=== PATIENT | female | born 1935 | race Caucasian/White ===

== ENCOUNTER 2018-04-30 19:53 | Inpatient (IN) ==
[2018-04-30] MEDS ORDERED: DOPamine 400 MG/250 ML Premix 400 MG/250 ML BAG IV.CONT ONE (19:59)
[2018-04-30] MEDS: Norepinephrine Inj 4 MG in Sodium Chlor 0.9% Inj 246 ML IV.SIG PRN (20:12)
[2018-04-30] MEDS ORDERED: DOPamine 800 MG/500 ML Premix 800 MG/500 ML PLAST..BAG IV.CONT PRN (20:54)
[2018-04-30] MEDS ORDERED: Pantoprazole Inj 40 MG Vial IV.PUSH ONE (20:54)
[2018-04-30] MEDS ORDERED: Hydrocortisone Sod Succinate 100 MG Vial IV.PUSH ONE (20:54)
--- NOTE | 2018-04-30 21:02 | XR ---
EXAM DATE: 04/30/2018 8:53 PM EST AGE/SEX: 82 years / Female INDICATIONS: Post intubation. CLINICAL DATA: This is the patient's initial encounter. Patient reports that signs and symptoms have been present for 1 day and indicates a pain score of Nonresponsive. MEDICAL/SURGICAL HISTORY: . Chronic obstructive pulmonary disease. Hypertension. None. COMPARISON: [facility], CHEST 1V SINGLE AP, 04/21/2018. . FINDINGS: ET tube in good position. Left lung is hyperinflated with left pneumothorax.. The right lung is under aerated. Coarse interstit ial changes are present. CONCLUSION: ETT in good position Moderate left pneumothorax loculated in the base because of supine film. Electronically signed by: Jason Noble MD Board Certified Radiologist 04/30/2018 9:01 PM EST
[2018-04-30 21:18] LABS: ABG Base Excess -14.4 mmol/L (-2-2); ABG PCO2 61 mmHg (38-42); ABG PO2 444 mmHg (61-120)
--- NOTE | 2018-04-30 21:27 | XR ---
EXAM DATE: 04/30/2018 9:23 PM EST AGE/SEX: 82 years / Female INDICATIONS: Post left side chest tube. CLINICAL DATA: This is the patient's subsequent encounter. Patient reports that signs and symptoms h ave been present for 1 day and indicates a pain score of Nonresponsive. MEDICAL/SURGICAL HISTORY: . Chronic obstructive pulmonary disease. Hypertension. None. [place] [facility] [place]. . FINDINGS: Large bore chest tube in good position on the left resolution of the pneumothorax. ET tube in good po sition. Coarse interstitial changes throughout both lungs. CONCLUSION: Left chest tube in good position with resolution of the left pneumothorax Electronically signed by: Jason Noble MD Board Certified Radiologist 04/30/2018 9:26 PM EST
[2018-04-30 21:50] LABS: Baso # (Auto) 0.1 th/mm3 (0.0-0.2); Baso % (Auto) 0.7 % (0.0-2.0); Eos % (Auto) 0.1 % (0.0-4.0); Hematocrit 22.4 % (35.0-46.0); Lymph # (Auto) 3.6 th/mm3 (1.0-4.8); Lymph % (Auto) 20.7 % (9.0-44.0); Mean Corpuscular Hemoglobin 29.3 pg (27.0-34.0); Mean Corpuscular Volume 98.5 fL (80.0-100.0); Mean Platelet Volume 8.7 fL (7.0-11.0); Mono # (Auto) 0.6 th/mm3 (0.0-0.9); Mono % (Auto) 3.2 % (0.0-8.0); Neut % (Auto) 75.3 % (16.0-70.0); Platelet Count 200 th/mm3 (150-450); Red Blood Count 2.28 mil/mm3 (4.00-5.30); Red Cell Distribution Width 17.1 % (11.6-17.2); White Blood Count 17.2 th/mm3 (4.0-11.0)
--- NOTE | 2018-04-30 21:51 | P.HPCC ---
History of Present Illness Primary Care Physician: Magnus Gil MD History of Present Illness: 82-year-old female presents from local nursing facility where she was found to be unresponsive by nursing staff. According to paramedics who provided a history patient has severe dementia is a recent 2-3-day resident of the nursing facility and was reportedly found by paramedics to be unresponsive pulseless without heart sounds and with apnea. ACLS protocol and resuscitative measures were initiated immediately with assisted ventilations and CPR as well as IV access administration of medications and intubation. According to paramedics in the field patient received 4 mg of epinephrine and 50 mEq of sodium bicarbonate. Patient also received 500 mL's of normal saline bolus. Patient was initially identified to be briefly and a bradycardic PEA then deteriorated to asystole and then was in a tachycardic PEA. Patient had return of spontaneous circulation upon arrival to the emergency department. At time of transfer from EMS stretcher to ED stretcher breath sounds were auscultated bilaterally and no borborygmi was identified prior to transfer to ED stretcher and upon transfer to ED structure patient continued to have bilateral breath sounds with no borborygmi. No difficulty with ambulation assisted ventilations. Patient did have faint pulse femoral he as well as palpable pulse with carotids and no blood pressure had been reported. Ongoing IV fluids were administered. Past medical history includes dementia and COPD per paramedics. The initial chest x-ray in the emergency department showed left pneumothorax for which the chest tube was placed by ED attending. The patient' s condition and poor prognosis was discussed with the family members by ED attending. It was found that the patient was supposed to be DNR at the intermediate due to end-stage dementia, however the paperwork was never finished. The patient's family expressed wishes to place a DNR order on the chart. Inpatient Certification: I certify that the inpatient services were ordered in accordance with Medicare regulations governing the order. This includes certification that hospital inpatient services are reasonable and necessary and in the case of services not specified as inpatient-only under 42 CFR 419.22(n), that they are appropriately provided as inpatient services in accordance to with the 2-midnight benchmark under 43 CFR 412.3(e) Review of Systems unobtainable due to endotracheal tube PMFSH - History History Provided By: Legal Editor / EMT - Medical History Medical History: Medical History (Last Reviewed 04/24/18 @ 13:28 by Katherine Jo) Alzheimer disease COPD (chronic obstructive pulmonary disease) History of hysterectomy Hyperlipidemia Hypertension Osteoarthritis - Family History Family History: Family History (Last Updated 04/15/18 @ 22:25 by Tabatha Singh MD) Other Diabetes mellitus - Tobacco History Second Hand Smoke Exposure: No Tobacco Use In Past 30 Days: (unknown) Smoking Status: Light tobacco smoker Tobacco Type: Cigarettes - Alcohol History How Often Do You Have a Drink Containing Alcohol: Never - Substance Use History Substance History: No History of Abuse - Travel History Recent Travel in the [place] Within the Last 8 Weeks: No Recent Travel Out of the Country Within the Last 8 Weeks: No - Immunization History Tetanus Immunization: Unsure Medications and Allergies Active Medications: Active Medications Norepinephrine Bitartrate 4 mg (/ Sodium Chloride) 250 mls @ 7.5 mls/hr IV.SIG TITRATE PRN; Protocol PRN Reason: Per Protocol Last Admin: 04/30/18 20:12 Dose: 20 mcg/min, 75 mls/hr Dopamine HCl/Dextrose (Dopamine 800 Mg/500 Ml Premix) 800 mg in 500 mls @ 6.921 mls/hr IV.CONT TITRATE PRN; Protocol PRN Reason: Per Protocol Sodium Chloride (Ns Flush) 2 ml IV.FLUSH BID ALEX Sodium Chloride (Ns Flush) 2 ml IV.FLUSH PRN PRN PRN Reason: FLUSH AFTER USING IV ACCESS Sodium Chloride (Ns Flush) 2 ml IV.FLUSH UNSCH PRN PRN Reason: FLUSH AFTER USING IV ACCESS Terbutaline Sulfate (Brethine Inj) 1 mg SQ ONCE PRN PRN Reason: Extravasation Terbutaline Sulfate (Brethine Inj) 1 mg SQ UNSCH PRN PRN Reason: For Extravasation Allergies Allergy/AdvReac Type Severity Reaction Status Date / Time No Known Allergies Allergy Verified 04/15/18 15:49 Home Medications Medication Instructions Recorded Confirmed Type citalopram [Celexa] 10 mg PO DAILY 04/15/18 04/30/18 History cyanocobalamin (vitamin B-12) 1,000 mcg PO DAILY 04/15/18 04/30/18 History [Vitamin B-12] ipratropium-albuterol [Combivent 1 puff INHALATION BID 04/15/18 04/30/18 History Respimat] memantine [Namenda] 10 mg PO BID 04/15/18 04/30/18 History rivastigmine tartrate 1.5 mg PO BID 04/15/18 04/30/18 History trazodone 50 mg PO QPM 04/15/18 04/30/18 History Results - Labs CBC & Chem 7: 05/01/18 03:29 05/01/18 03:29 - Imaging Impressions Chest X-Ray 04/30/18 00:00 CONCLUSION: ETT in good position Moderate left pneumothorax loculated in the base because of supine film. Chest X-Ray 04/30/18 20:52 CONCLUSION: Left chest tube in good position with resolution of the left pneumothorax Exam Vital signs: Vital Signs 04/30/18 19:53 04/30/18 19:54 04/30/18 19:58 Pulse Rate 59 L Respiratory Rate 16 16 Blood Pressure Pulse Oximetry 98 100 04/30/18 20:06 04/30/18 20:42 04/30/18 20:49 Pulse Rate 44 L 70 Respiratory Rate 16 18 18 Blood Pressure 132/57 L Pulse Oximetry 100 95 100 04/30/18 20:52 04/30/18 20:55 04/30/18 21:06 Pulse Rate 70 79 68 Respiratory Rate 18 18 18 Blood Pressure 124/56 L 122/61 Pulse Oximetry 98 96 04/30/18 21:09 04/30/18 21:10 04/30/18 21:11 Pulse Rate 69 74 Respiratory Rate 18 Blood Pressure 99/48 L Pulse Oximetry 97 92 L 94 L 04/30/18 21:12 04/30/18 21:26 Pulse Rate 70 62 Respiratory Rate 18 18 Blood Pressure 111/50 L 103/48 L Pulse Oximetry 93 L Intake & Output 04/30/18 04/30/18 05/01/18 06:59 18:59 06:59 Weight 61.518 kg - Constitutional severe distress - Routine HEENT Exam Head: Present: atraumatic ENT: Present: mucous membranes moist Comments: Pupils are nonreactive - Routine Neck Exam Absent: JVD, carotid bruit - Routine Respiratory Exam Present: patient mechanically ventilated. Absent: rales, rhonchi - Routine Cardiovascular Exam Present: RRR, bradycardia - Routine Abdominal Exam Present: soft. Absent: tenderness, distended - Routine Extremities Exam Absent: cyanosis, clubbing, edema - Routine Skin Exam Present: intact. Absent: cyanosis, erythema - Routine Neurological Exam Present: altered mental status - Detailed Neurological Exam: Coma Scale Eye Opening: None Verbal Response: None Motor Response: None [place] Coma Scale Total: 3 Septic Shock Reassessment Septic shock perfusion: reassessment completed Caprini VTE Risk Assessment Caprini VTE Risk Assessment: Moderate/High Risk (score >= 2) Caprini Risk Assessment Model: Point Value = 1 Point Value = 2 Point Value = 3 Point Value = 5 Age 41-60 Minor surgery BMI > 25 kg/m2 Swollen legs Varicose veins or History of unexplained or recurrent spontaneous Oral contraceptives or hormone replacement Sepsis (< 1 month) Serious lung disease, including pneumonia (< 1 month) Abnormal pulmonary function Acute myocardial infarction Congestive heart failure (< 1 month) History of inflammatory bowel disease Medical patient at bed rest Age 61-74 Arthroscopic surgery Major open surgery (> 45 min) Laparoscopic surgery (> 45 min) Malignancy Confined to bed (> 72 hours) Immobilizing plaster cast Central venous access Age >= 75 History of VTE Family history of VTE Factor V Leiden Prothrombin 20322H Lupus anticoagulant Anticardiolipin antibodies Elevated serum homocysteine Heparin-induced thrombocytopenia Other congenital or acquired thrombophilia Stroke (< 1 month) Elective arthroplasty Hip, pelvis, or leg fracture Acute spinal cord injury (< 1 month) Prophylaxis Regimen: Total Risk Factor Score Risk Level Prophylaxis Regimen 0-1 Low Early ambulation 2 Moderate Order ONE of the following: *Sequential Compression Device (SCD) *Heparin 5000 units SQ BID 3-4 Higher Order ONE of the following medications: *Heparin 5000 units SQ TID *Enoxaparin/Lovenox 40 mg SQ daily (WT < 150 kg, CrCl > 30 mL/min) *Enoxaparin/Lovenox 30 mg SQ daily (WT < 150 kg, CrCl > 10-29 mL/min) *Enoxaparin/Lovenox 30 mg SQ BID (WT < 150 kg, CrCl > 30 mL/min) AND/OR *Sequential Compression Device (SCD) 5 or more Highest Order ONE of the following medications: *Heparin 5000 units SQ TID (Preferred with Epidurals) *Enoxaparin/Lovenox 40 mg SQ daily (WT < 150 kg, CrCl > 30 mL/min) *Enoxaparin/Lovenox 30 mg SQ daily (WT < 150 kg, CrCl > 10-29 mL/min) *Enoxaparin/Lovenox 30 mg SQ BID (WT < 150 kg, CrCl > 30 mL/min) AND *Sequential Compression Device (SCD) Assessment and Plan - Assessment and Plan Plan: Cardiac arrest -Unknown downtime -Extremely poor prognosis -DNR -Palliative care consultation -Not a candidate for hypothermia protocol due to DNR -Series of troponins and EKGs Respiratory failure -Due to above -Underlying severe pulmonary fibrosis -Mechanical ventilation -DuoNeb scheduled and as needed -Steroid -Spiriva -Symbicort -No weaning until neurologically improved Alzheimer disease -Namenda -Rivastigmine -Palliative care consultation Depressions -Celexa -Trazodone Cardiogenic shock -Epinephrine as needed to keepM AP above 65 Diabetes mellitus -Insulin sliding scale Anemia Possible GI bleed -Melanotic stool -Protonix IV twice daily -Transfuse PRBC as needed to keep hemoglobin above 7 Pneumothorax -From CPR -Chest tube placed by ED attending -Daily CXR DVT GI prophylaxis -Teds SCDs -Hold pharmacological DVT prophylaxis due to possible GI bleed -Protonix IV twice daily 35 minutes of critical care
[2018-04-30] MEDS ORDERED: Bisacodyl 10 MG Supp RECTAL PRN (21:54)
[2018-04-30] MEDS ORDERED: Morphine Sulfate Inj 2 MG/ML Vial IV.PUSH PRN (21:54)
[2018-04-30] MEDS ORDERED: Acetaminophen 325 MG Tablet PO PRN (21:54)
[2018-04-30 21:55] LABS: Mean Corpuscular HGB Conc 29.7 % (32.0-36.0)
[2018-04-30 22:02] LABS: Activated Partial Thrombo Time 41.3 sec (23.4-31.7); Hemoglobin 6.7 gm/dL (11.6-15.3); INR 1.2 Ratio; Prothrombin Time 12.4 sec (9.8-11.6)
[2018-04-30 22:11] LABS: Albumin 1.9 g/dL (3.4-5.0); Carbon Dioxide 22.3 meq/L (21.0-32.0); Magnesium 2.2 mg/dL (1.5-2.5); Potassium 4.6 meq/L (3.5-5.1); Total Protein 4.3 g/dL (6.4-8.2); Troponin I 0.07 ng/mL (0.02-0.05)
[2018-04-30 22:21] LABS: Eosinophils 1 % (0-4); Lymphocytes 30 % (9-44); Metamyelocytes 3 % (0-1); Monocytes 2 % (0-8); Myelocytes 2 % (0-0); Promyelocyte 1 % (0-0)
[2018-04-30 22:23] LABS: Platelet Estimate Normal (Normal); Platelet Morphology Normal (Normal)
[2018-04-30 22:24] LABS: Acanthocytes Occ
--- NOTE | 2018-05-01 00:13 | ED ---
HPI General Chief Complaint: Cardiac Arrest/CPR Stated Complaint: cardiac arrest/evac Time Seen by Provider: 04/30/18 21:35 Source: EMS Mode of arrival: EMS Limitations: other (intubation) History of Present Illness HPI narrative: 82-year-old female presents to the emergency department from local nursing facility where she was found to be unresponsive by nursing staff. According to paramedics who provides a history patient has severe dementia is a recent 2-3-day resident of the nursing facility and was reportedly found by paramedics to be unresponsive pulseless without heart sounds and with apnea. ACLS protocol and resuscitative measures were initiated immediately with assisted ventilations and CPR as well as IV access administration of medications and intubation. According to paramedics in the field patient received 4 mg of epinephrine and 50 mEq of sodium bicarbonate. Patient also received 500 mL's of normal saline bolus. Patient was initially identified to be briefly and a bradycardic PEA then deteriorated to asystole and then was in a tachycardic PEA. Patient had return of spontaneous circulation upon arrival to the emergency department. At time of transfer from EMS stretcher to ED stretcher breath sounds were auscultated bilaterally and no borborygmi was identified prior to transfer to ED stretcher and upon transfer to ED structure patient continued to have bilateral breath sounds with no borborygmi. No difficulty with ambulation assisted ventilations. Patient did have faint pulse femoral he as well as palpable pulse with carotids and no blood pressure had been reported. Ongoing IV fluids were administered. Past medical history includes dementia and COPD per paramedics. Related Data Home Medications Medication Instructions Recorded Confirmed citalopram [Celexa] 10 mg PO DAILY 04/15/18 04/30/18 cyanocobalamin (vitamin B-12) 1,000 mcg PO DAILY 04/15/18 04/30/18 [Vitamin B-12] ipratropium-albuterol [Combivent 1 puff INHALATION BID 04/15/18 04/30/18 Respimat] memantine [Namenda] 10 mg PO BID 04/15/18 04/30/18 rivastigmine tartrate 1.5 mg PO BID 04/15/18 04/30/18 trazodone 50 mg PO QPM 04/15/18 04/30/18 Previous Rx's Medication Instructions Recorded bisacodyl [Bisac-Evac] 10 mg CO DAILY PRN 30 Days #30 each 04/25/18 budesonide-formoterol [Symbicort] 1 puff INH BID #1 g 04/25/18 carvedilol [Coreg] 3.125 mg PO BID #60 tab 04/25/18 ipratropium-albuterol 1 amp NEB Q6HR WHILE AWAKE NEB PRN 04/25/18 #300 ml lactulose 30 ml PO DAILY PRN #200 ml 04/25/18 magnesium hydroxide [Milk of 30 ml PO Q12H PRN #30 ml 04/25/18 Magnesia] nhggkodb-bquz-AF-calcium-mins 1 tab PO DAILY #30 tab 04/25/18 [Thera M Plus (ferrous fumarat)] pantoprazole 40 mg PO BID #60 tab 04/25/18 prednisone 10 mg PO BID #20 tab 04/25/18 sennosides [Senna Lax] 17.2 mg PO Q12H PRN #30 tab 04/25/18 sennosides-docusate sodium [Senna 1 tab PO BID #30 tab 04/25/18 Plus] tiotropium bromide [Spiriva with 18 mcg INH DAILY #1 inh 04/25/18 HandiHaler] Allergies Allergy/AdvReac Type Severity Reaction Status Date / Time No Known Allergies Allergy Verified 04/15/18 15:49 Review of Systems ROS Unobtainable ROS Unobtainable: unobtainable due to endotracheal tube (Unresponsive with ROSC) PMFSH Family History Family History Other Diabetes mellitus Social History Social History Substance History: No History of Abuse Second Hand Smoke Exposure: No Smoking Status: Light tobacco smoker Tobacco Type: Cigarettes Years Smoked: 60 Smoking End Date: 2007 How Often Do You Have a Drink Containing Alcohol: Never Recent Travel in [facility] within the Last 8 Weeks: No Recent Out of Country Travel within the Last 8 Weeks: No Immunization History Tetanus Immunization: Unsure Exam Narrative Exam Narrative: GENERAL: Well-nourished, well-developed patient. Elderly female GCS 3 ambu assisted ventilations with endotracheal tube in position. SKIN: Focused skin assessment warm/dry. HEAD: Normocephalic. EYES: No scleral icterus. No injection or drainage. Pupils nonreactive to light. NECK: Supple, trachea midline. No JVD or lymphadenopathy. CARDIOVASCULAR: Regular rate and rhythm to auscultation; unable to auscultate murmur. RESPIRATORY: Breath sounds equal bilaterally however only with ambu assisted ventilations no spontaneous breathing. Equal chest rise is noted. GASTROINTESTINAL: Abdomen soft, nondistended. No borborygmi. MUSCULOSKELETAL: No cyanosis, or edema. Course Initial Documented Vital Signs Pulse Oximetry 98 04/30/18 19:53 Last Documented Vital Signs Pulse Rate 95 H 05/01/18 12:15 Respiratory Rate 21 05/01/18 12:15 Blood Pressure 98/51 L 05/01/18 12:15 Pulse Oximetry 96 05/01/18 12:15 Procedures Chest Tube Chest Tube 1: Chest Tube Location: Mid-Axillary Chest (left) Size of Tube (cm): 28 Chest Tube Procedure: Yes betadine prep and sterile drapes applied Tube Sutured to Skin: Yes Sterile Dressing Applied: Yes Incision made with: #11 blade Roy of Air Merrick: Yes Tube Drainage: blood Amount of initial drainage (mL): 30 Post Procedure CXR?: Yes Patient Tolerated Procedure: Yes Post Procedure: sutured to skin and sterile dressing applied Critical Care Time Critical Care Time: Yes Total Critical Care Time: 40 Attestation: Aggregate critical care time was 40 minutes. Time to perform other separately billable procedures was not included in the critical care time. My time did not include minutes spent treating any other patients simultaneously or on activities that did not directly contribute to the patient's treatment. The services I provided to this patient were to treat and/or prevent clinically significant deterioration that could result in: Myocardial infarction pulmonary embolism I provided critical care services requiring my management, as noted below: Chart data review, documentation time, medication orders and management, vital sign assessments/reviewing monitor data, ordering and reviewing lab tests, ordering and interpreting/reviewing x-rays and diagnostic studies, care of the patient and discussion of the patient with the admitting physicians. Medical Decision Making MDM Narrative Medical decision making narrative: 82-year-old female with history of pulmonary fibrosis COPD and dementia full code per EMS report per senior living report presents after being found to be in distress and then becoming unresponsive reportedly unknown bystander CPR. Was found briefly and PEA deteriorated to asystole and then return to PEA and just as arriving to the emergency department had return of spontaneous circulation placed on ED stretcher with secured entrance monitor additional IV access obtained and IV fluids administered. Difficulty obtaining blood pressure with manual pressure as well as automated blood pressure attempts performed. Patient placed on pressure support with dopamine, additionally received Levophed pressor support still unable to obtain blood pressure additional IV fluids administered. Patient was identified on EKG to have what appeared to be third-degree AV block patient was administered atropine with no response pacer pads placed. ABG identified a mixed specimen but does show evidence of respiratory acidosis with pH of 7.1 and PCO2 of 70 with PO2 of 48 with normal range bicarb of 22. Review of patient's medical record that presents from nursing facility including medication list includes Coreg as a medication patient was administered glucagon 1 mg IV as well as epinephrine infusion. Patient's case was discussed with on-call cardiology; aware of patient's condition presentation multiple medication administration. Patient subsequently had loss of pulse and return to a PEA rhythm with resumption of chest compressions administration of epinephrine and was subsequently identified to be in ventricular fibrillation was defibrillated to a PEA and then had return of spontaneous circulation. Stat chest x-ray was ordered. Photographic Specialist was notified for admission. Patient's family notified of patient's serious condition; Please refer to code summary. Patient's family reports that their plan had been to make their mother DNR per her request and wishes as well as there is but over the 3-day period, there was difficulty completing the paperwork and therefore the paperwork did not get signed out would have declared her to be at DNR DNI. DNR status has been shared with the reeling and tubing machine operator. Chest x-ray is consistent with left pneumothorax. Stat left-sided 28 F chest tube placed in the left anterior axillary line at the fifth intercostal space. Chest tube was secured. Patient tolerated procedure well. Post thoracostomy chest x-ray identifies resolution of pneumothorax and good tube placement. Patient continued to maintain blood pressure and was accepted to ICU for admission per reeling and tubing machine operator. Daughter also reports patient with recent upper GI bleed secondary to peptic ulcer disease. Medical Screen Exam Complete: Yes Emergency Medical Condition: Yes Differential Diagnosis Differential Diagnosis: Respiratory arrest, cardiopulmonary arrest/cardiogenic shock, arrhythmia, sepsis/septic shock, pneumonia, exacerbation COPD, PE, CHF, cardiac tamponade, GI bleed, electrolyte disturbance Medical Records Medical records reviewed: Yes I reviewed the patient's medical records. Lab Data Lab results reviewed: Yes I reviewed the patient's lab results. Result diagrams: 05/01/18 03:29 05/01/18 03:29 Lab Results 04/30/18 04/30/18 04/30/18 Range/Units 20:00 20:08 20:08 WBC (4.0-11.0) th/mm3 RBC (4.00-5.30) mil/mm3 Hgb (11.6-15.3) gm/dL POC Hgb (Calc) 6.8 L* (11.6-15.3) g/dL Hct (35.0-46.0) % POC Hct 20.0 L* (35-46.0) % MCV (80.0-100.0) fL MCH (27.0-34.0) pg MCHC (32.0-36.0) % RDW (11.6-17.2) % Plt Count (150-450) th/mm3 MPV (7.0-11.0) fL Prelim Diff (Auto) Neut % (Auto) (16.0-70.0) % Lymph % (Auto) (9.0-44.0) % [place] % (Auto) (0.0-8.0) % Eos % (Auto) (0.0-4.0) % Baso % (Auto) (0.0-2.0) % Neut # (Auto) (1.8-7.7) th/mm3 Lymph # (Auto) (1.0-4.8) th/mm3 [place] # (Auto) (0.0-0.9) th/mm3 Eos # (Auto) (0.0-0.4) th/mm3 Baso # (Auto) (0.0-0.2) th/mm3 WBC Differential Seg Neuts % (Manual) (16-70) % Band Neuts % (Manual) (0-6) % Lymphocytes % (Manual) (9-44) % Monocytes % (Manual) (0-8) % Eosinophils % (Manual) (0-4) % Metamyelocytes % (Man) (0-1) % Myelocytes % (Man) (0-0) % Promyelocytes % (Man) (0-0) % Abs Neuts (Manual) (1.8-7.7) th/mm3 Differential Comment Platelet Estimate (Normal) Platelet Morphology (Normal) Clinton Cells (None) Acanthocytes (Spur) (None) Keratocytes (None) PT (9.8-11.6) sec INR Ratio APTT (23.4-31.7) sec Puncture Site Cancelled Patient Temperature Cancelled O2 Saturation Cancelled ABG pH Cancelled ABG pCO2 Cancelled ABG pO2 Cancelled ABG HCO3 Cancelled ABG O2 Content Cancelled ABG Base Excess Cancelled ABG Methemoglobin Cancelled Zbigniew Test Cancelled Hemoglobin Cancelled Carboxyhemoglobin Cancelled O2 Delivery Device Cancelled Liter Flow Cancelled Vent Setting Cancelled Inspired O2 Cancelled Critical Value Cancelled POC Sodium 138 (137-144) mmol/L Sodium (136-145) meq/L POC Potassium 4.5 (3.6-5.0) mmol/L Potassium (3.5-5.1) meq/L POC Chloride 100 L (102-111) mmol/L Chloride (98-107) meq/L Carbon Dioxide (21.0-32.0) meq/L Anion Gap (5-15) meq/L POC BUN 19 (5-21) mg/dL BUN (7-18) mg/dL Creatinine (0.50-1.00) mg/dL POC Creatinine 0.7 (0.6-1.3) mg/dL Estimated GFR (>89) mL/min POC Glucose 368 H (68-110) mg/dL Random Glucose (74-106) mg/dL Calcium (8.5-10.1) mg/dL Calcium Adj for Albumin (8.5-10.1) mg/dL Phosphorus (2.5-4.9) mg/dL Magnesium (1.5-2.5) mg/dL Total Bilirubin (0.2-1.0) mg/dL AST (15-37) U/L ALT (10-53) U/L Alkaline Phosphatase (45-117) U/L Total Creatine Kinase (26-192) U/L CK-MB (CK-2) (0.5-3.6) ng/mL CK-MB (CK-2) % (0.0-4.0) % Troponin I (0.02-0.05) ng/mL B-Natriuretic Peptide (0-100) pg/mL Total Protein (6.4-8.2) g/dL Albumin (3.4-5.0) g/dL Lipase Nasal Screen MRSA (PCR) (Negative) Blood Type O Positive Blood Type Recheck Not needed Antibody Screen Negative MTS Gel Crossmatch See Detail 04/30/18 04/30/18 04/30/18 Range/Units 20:08 20:08 20:08 WBC 17.2 H (4.0-11.0) th/mm3 RBC 2.28 L (4.00-5.30) mil/mm3 Hgb 6.7 L* (11.6-15.3) gm/dL POC Hgb (Calc) (11.6-15.3) g/dL Hct 22.4 L (35.0-46.0) % POC Hct (35-46.0) % MCV 98.5 (80.0-100.0) fL MCH 29.3 (27.0-34.0) pg MCHC 29.7 L (32.0-36.0) % RDW 17.1 (11.6-17.2) % Plt Count 200 D (150-450) th/mm3 MPV 8.7 (7.0-11.0) fL Prelim Diff (Auto) Slide review pending Neut % (Auto) 75.3 H (16.0-70.0) % Lymph % (Auto) 20.7 (9.0-44.0) % [place] % (Auto) 3.2 (0.0-8.0) % Eos % (Auto) 0.1 (0.0-4.0) % Baso % (Auto) 0.7 (0.0-2.0) % Neut # (Auto) 13.0 H (1.8-7.7) th/mm3 Lymph # (Auto) 3.6 (1.0-4.8) th/mm3 [place] # (Auto) 0.6 (0.0-0.9) th/mm3 Eos # (Auto) 0.0 (0.0-0.4) th/mm3 Baso # (Auto) 0.1 (0.0-0.2) th/mm3 WBC Differential Manual diff final Seg Neuts % (Manual) 52 (16-70) % Band Neuts % (Manual) 9 H (0-6) % Lymphocytes % (Manual) 30 (9-44) % Monocytes % (Manual) 2 (0-8) % Eosinophils % (Manual) 1 (0-4) % Metamyelocytes % (Man) 3 H (0-1) % Myelocytes % (Man) 2 H (0-0) % Promyelocytes % (Man) 1 H (0-0) % Abs Neuts (Manual) 11.5 H (1.8-7.7) th/mm3 Differential Comment . Platelet Estimate Normal (Normal) Platelet Morphology Normal (Normal) Stacie Cells (None) Acanthocytes (Spur) Occ H (None) Keratocytes Occ H (None) PT (9.8-11.6) sec INR Ratio APTT (23.4-31.7) sec Puncture Site Patient Temperature O2 Saturation ABG pH ABG pCO2 ABG pO2 ABG HCO3 ABG O2 Content ABG Base Excess ABG Methemoglobin Zbigniew Test Hemoglobin Carboxyhemoglobin O2 Delivery Device Liter Flow Vent Setting Inspired O2 Critical Value POC Sodium (137-144) mmol/L Sodium (136-145) meq/L POC Potassium (3.6-5.0) mmol/L Potassium (3.5-5.1) meq/L POC Chloride (102-111) mmol/L Chloride (98-107) meq/L Carbon Dioxide (21.0-32.0) meq/L Anion Gap (5-15) meq/L POC BUN (5-21) mg/dL BUN (7-18) mg/dL Creatinine (0.50-1.00) mg/dL POC Creatinine (0.6-1.3) mg/dL Estimated GFR (>89) mL/min POC Glucose (68-110) mg/dL Random Glucose (74-106) mg/dL Calcium (8.5-10.1) mg/dL Calcium Adj for Albumin (8.5-10.1) mg/dL Phosphorus (2.5-4.9) mg/dL Magnesium (1.5-2.5) mg/dL Total Bilirubin (0.2-1.0) mg/dL AST (15-37) U/L ALT (10-53) U/L Alkaline Phosphatase (45-117) U/L Total Creatine Kinase (26-192) U/L CK-MB (CK-2) (0.5-3.6) ng/mL CK-MB (CK-2) % (0.0-4.0) % Troponin I (0.02-0.05) ng/mL B-Natriuretic Peptide 44 (0-100) pg/mL Total Protein (6.4-8.2) g/dL Albumin (3.4-5.0) g/dL Lipase Cancelled Nasal Screen MRSA (PCR) (Negative) Blood Type Blood Type Recheck Antibody Screen MTS Gel Crossmatch 04/30/18 04/30/18 04/30/18 Range/Units 20:08 20:08 20:08 WBC (4.0-11.0) th/mm3 RBC (4.00-5.30) mil/mm3 Hgb (11.6-15.3) gm/dL POC Hgb (Calc) (11.6-15.3) g/dL Hct (35.0-46.0) % POC Hct (35-46.0) % MCV (80.0-100.0) fL MCH (27.0-34.0) pg MCHC (32.0-36.0) % RDW (11.6-17.2) % Plt Count (150-450) th/mm3 MPV (7.0-11.0) fL Prelim Diff (Auto) Neut % (Auto) (16.0-70.0) % Lymph % (Auto) (9.0-44.0) % [place] % (Auto) (0.0-8.0) % Eos % (Auto) (0.0-4.0) % Baso % (Auto) (0.0-2.0) % Neut # (Auto) (1.8-7.7) th/mm3 Lymph # (Auto) (1.0-4.8) th/mm3 [place] # (Auto) (0.0-0.9) th/mm3 Eos # (Auto) (0.0-0.4) th/mm3 Baso # (Auto) (0.0-0.2) th/mm3 WBC Differential Seg Neuts % (Manual) (16-70) % Band Neuts % (Manual) (0-6) % Lymphocytes % (Manual) (9-44) % Monocytes % (Manual) (0-8) % Eosinophils % (Manual) (0-4) % Metamyelocytes % (Man) (0-1) % Myelocytes % (Man) (0-0) % Promyelocytes % (Man) (0-0) % Abs Neuts (Manual) (1.8-7.7) th/mm3 Differential Comment Platelet Estimate (Normal) Platelet Morphology (Normal) Clinton Cells (None) Acanthocytes (Spur) (None) Keratocytes (None) PT 12.4 H (9.8-11.6) sec INR 1.2 Ratio APTT 41.3 H (23.4-31.7) sec Puncture Site Patient Temperature O2 Saturation ABG pH ABG pCO2 ABG pO2 ABG HCO3 ABG O2 Content ABG Base Excess ABG Methemoglobin Zbigniew Test Hemoglobin Carboxyhemoglobin O2 Delivery Device Liter Flow Vent Setting Inspired O2 Critical Value POC Sodium (137-144) mmol/L Sodium 142 (136-145) meq/L POC Potassium (3.6-5.0) mmol/L Potassium 4.6 (3.5-5.1) meq/L POC Chloride (102-111) mmol/L Chloride 105 (98-107) meq/L Carbon Dioxide 22.3 (21.0-32.0) meq/L Anion Gap 15 (5-15) meq/L POC BUN (5-21) mg/dL BUN 18 (7-18) mg/dL Creatinine 0.93 (0.50-1.00) mg/dL POC Creatinine (0.6-1.3) mg/dL Estimated GFR 58 L (>89) mL/min POC Glucose (68-110) mg/dL Random Glucose 370 H (74-106) mg/dL Calcium 7.0 L* (8.5-10.1) mg/dL Calcium Adj for Albumin 8.7 (8.5-10.1) mg/dL Phosphorus (2.5-4.9) mg/dL Magnesium 2.2 (1.5-2.5) mg/dL Total Bilirubin 0.2 (0.2-1.0) mg/dL AST 394 H (15-37) U/L ALT 465 H (10-53) U/L Alkaline Phosphatase 85 (45-117) U/L Total Creatine Kinase 94 Cancelled (26-192) U/L CK-MB (CK-2) (0.5-3.6) ng/mL CK-MB (CK-2) % (0.0-4.0) % Troponin I 0.07 H Cancelled (0.02-0.05) ng/mL B-Natriuretic Peptide (0-100) pg/mL Total Protein 4.3 L (6.4-8.2) g/dL Albumin 1.9 L (3.4-5.0) g/dL Lipase 228 Nasal Screen MRSA (PCR) (Negative) Blood Type Blood Type Recheck Antibody Screen MTS Gel Crossmatch 04/30/18 04/30/18 05/01/18 Range/Units 21:00 22:30 01:36 WBC (4.0-11.0) th/mm3 RBC (4.00-5.30) mil/mm3 Hgb (11.6-15.3) gm/dL POC Hgb (Calc) (11.6-15.3) g/dL Hct (35.0-46.0) % POC Hct (35-46.0) % MCV (80.0-100.0) fL MCH (27.0-34.0) pg MCHC (32.0-36.0) % RDW (11.6-17.2) % Plt Count (150-450) th/mm3 MPV (7.0-11.0) fL Prelim Diff (Auto) Neut % (Auto) (16.0-70.0) % Lymph % (Auto) (9.0-44.0) % [place] % (Auto) (0.0-8.0) % Eos % (Auto) (0.0-4.0) % Baso % (Auto) (0.0-2.0) % Neut # (Auto) (1.8-7.7) th/mm3 Lymph # (Auto) (1.0-4.8) th/mm3 [place] # (Auto) (0.0-0.9) th/mm3 Eos # (Auto) (0.0-0.4) th/mm3 Baso # (Auto) (0.0-0.2) th/mm3 WBC Differential Seg Neuts % (Manual) (16-70) % Band Neuts % (Manual) (0-6) % Lymphocytes % (Manual) (9-44) % Monocytes % (Manual) (0-8) % Eosinophils % (Manual) (0-4) % Metamyelocytes % (Man) (0-1) % Myelocytes % (Man) (0-0) % Promyelocytes % (Man) (0-0) % Abs Neuts (Manual) (1.8-7.7) th/mm3 Differential Comment Platelet Estimate (Normal) Platelet Morphology (Normal) Stacie Cells (None) Acanthocytes (Spur) (None) Keratocytes (None) PT (9.8-11.6) sec INR Ratio APTT (23.4-31.7) sec Puncture Site Right femoral Patient Temperature 98.6 O2 Saturation 98 ABG pH 7.01 L* ABG pCO2 61 H* ABG pO2 444 H ABG HCO3 15 L* ABG O2 Content 9.3 L ABG Base Excess -14.4 L ABG Methemoglobin 0.7 Zbigniew Test Hemoglobin 5.9 L* Carboxyhemoglobin 1.2 O2 Delivery Device Ventilator Liter Flow Vent Setting Inspired O2 100 Critical Value Yes POC Sodium (137-144) mmol/L Sodium (136-145) meq/L POC Potassium (3.6-5.0) mmol/L Potassium (3.5-5.1) meq/L POC Chloride (102-111) mmol/L Chloride (98-107) meq/L Carbon Dioxide (21.0-32.0) meq/L Anion Gap (5-15) meq/L POC BUN (5-21) mg/dL BUN (7-18) mg/dL Creatinine (0.50-1.00) mg/dL POC Creatinine (0.6-1.3) mg/dL Estimated GFR (>89) mL/min POC Glucose (68-110) mg/dL Random Glucose (74-106) mg/dL Calcium (8.5-10.1) mg/dL Calcium Adj for Albumin (8.5-10.1) mg/dL Phosphorus (2.5-4.9) mg/dL Magnesium (1.5-2.5) mg/dL Total Bilirubin (0.2-1.0) mg/dL AST (15-37) U/L ALT (10-53) U/L Alkaline Phosphatase (45-117) U/L Total Creatine Kinase (26-192) U/L CK-MB (CK-2) (0.5-3.6) ng/mL CK-MB (CK-2) % (0.0-4.0) % Troponin I 2.75 H* D (0.02-0.05) ng/mL B-Natriuretic Peptide (0-100) pg/mL Total Protein (6.4-8.2) g/dL Albumin (3.4-5.0) g/dL Lipase Nasal Screen MRSA (PCR) Mrsa detected (Negative) Blood Type Blood Type Recheck Antibody Screen MTS Gel Crossmatch 05/01/18 05/01/18 05/01/18 Range/Units 03:29 03:29 03:29 WBC 64.1 H D (4.0-11.0) th/mm3 RBC 3.60 L (4.00-5.30) mil/mm3 Hgb 10.5 L D (11.6-15.3) gm/dL POC Hgb (Calc) (11.6-15.3) g/dL Hct 35.1 (35.0-46.0) % POC Hct (35-46.0) % MCV 97.4 (80.0-100.0) fL MCH 29.1 (27.0-34.0) pg MCHC 29.9 L (32.0-36.0) % RDW 17.9 H (11.6-17.2) % Plt Count 308 D (150-450) th/mm3 MPV 8.0 (7.0-11.0) fL Prelim Diff (Auto) Slide review pending Neut % (Auto) 92.7 H (16.0-70.0) % Lymph % (Auto) 1.8 L (9.0-44.0) % [place] % (Auto) 5.1 (0.0-8.0) % Eos % (Auto) 0.1 (0.0-4.0) % Baso % (Auto) 0.3 (0.0-2.0) % Neut # (Auto) 59.4 H (1.8-7.7) th/mm3 Lymph # (Auto) 1.2 (1.0-4.8) th/mm3 [place] # (Auto) 3.3 H (0.0-0.9) th/mm3 Eos # (Auto) 0.1 (0.0-0.4) th/mm3 Baso # (Auto) 0.2 (0.0-0.2) th/mm3 WBC Differential Manual diff final Seg Neuts % (Manual) 78 H (16-70) % Band Neuts % (Manual) 13 H (0-6) % Lymphocytes % (Manual) (9-44) % Monocytes % (Manual) 5 (0-8) % Eosinophils % (Manual) (0-4) % Metamyelocytes % (Man) 4 H (0-1) % Myelocytes % (Man) (0-0) % Promyelocytes % (Man) (0-0) % Abs Neuts (Manual) 60.9 H (1.8-7.7) th/mm3 Differential Comment . Platelet Estimate Normal (Normal) Platelet Morphology Normal (Normal) Stacie Cells 1+ H (None) Acanthocytes (Spur) (None) Keratocytes Occ H (None) PT 15.8 H (9.8-11.6) sec INR 1.6 Ratio APTT 36.4 H (23.4-31.7) sec Puncture Site Patient Temperature O2 Saturation ABG pH ABG pCO2 ABG pO2 ABG HCO3 ABG O2 Content ABG Base Excess ABG Methemoglobin Zbigniew Test Hemoglobin Carboxyhemoglobin O2 Delivery Device Liter Flow Vent Setting Inspired O2 Critical Value POC Sodium (137-144) mmol/L Sodium 136 (136-145) meq/L POC Potassium (3.6-5.0) mmol/L Potassium 5.4 H D (3.5-5.1) meq/L POC Chloride (102-111) mmol/L Chloride 103 (98-107) meq/L Carbon Dioxide 18.8 L (21.0-32.0) meq/L Anion Gap 14 (5-15) meq/L POC BUN (5-21) mg/dL BUN 23 H (7-18) mg/dL Creatinine 1.26 H (0.50-1.00) mg/dL POC Creatinine (0.6-1.3) mg/dL Estimated GFR 41 L (>89) mL/min POC Glucose (68-110) mg/dL Random Glucose 584 H* D (74-106) mg/dL Calcium 6.9 L* (8.5-10.1) mg/dL Calcium Adj for Albumin 8.3 L (8.5-10.1) mg/dL Phosphorus 5.5 H (2.5-4.9) mg/dL Magnesium 2.0 (1.5-2.5) mg/dL Total Bilirubin 1.1 H (0.2-1.0) mg/dL AST 1180 H (15-37) U/L ALT 959 H (10-53) U/L Alkaline Phosphatase 219 H (45-117) U/L Total Creatine Kinase 594 H (26-192) U/L CK-MB (CK-2) 32.2 H (0.5-3.6) ng/mL CK-MB (CK-2) % 5.4 H* (0.0-4.0) % Troponin I 2.90 H* D (0.02-0.05) ng/mL B-Natriuretic Peptide (0-100) pg/mL Total Protein 5.5 L D (6.4-8.2) g/dL Albumin 2.3 L (3.4-5.0) g/dL Lipase Nasal Screen MRSA (PCR) (Negative) Blood Type Blood Type Recheck Antibody Screen MTS Gel Crossmatch Imaging Data Radiologist's impression: Chest X-Ray 04/30/18 00:00 CONCLUSION: ETT in good position Moderate left pneumothorax loculated in the base because of supine film. Chest X-Ray 04/30/18 20:52 CONCLUSION: Left chest tube in good position with resolution of the left pneumothorax ECG Data EKG Prior to Arrival: No Attestation: I personally reviewed and interpreted this ECG as follows: Discharge Plan Discharge Disposition Patient Disposition: ED Admit(ED Internal Use Only) Discharge Condition Condition: Critical Discharge Order Discharge Orders: ED Use Only Admit Order (Routine); Ordered 04/30/18 Ordered By: Alis Archer Discharge Details Diagnosis: Cardiac arrest, Pulmonary fibrosis, Acute respiratory failure, Pneumothorax Date/Time: 05/01/18 12:44 Physicians Team ED Provider: Alis Archer Primary Care Provider: Magnus Gil Attending Provider: Fabian Delacruz Other Providers: Anisa Abel Status ED Status: Left Department Discharge Information Discharge Date/Time: 05/01/18 08:17
[2018-05-01] MEDS: Sod Chloride 0.9% Inj 1,000 ML IV.CONT SCH ×2 (01:22→09:51)
[2018-05-01] MEDS: Oral Hygiene Kit OROPHARYNG SCH ×2 (01:22→06:31)
[2018-05-01] MEDS: Norepinephrine Inj 4 MG in Sodium Chlor 0.9% Inj 246 ML IV.SIG PRN ×2 (01:24→03:33)
[2018-05-01] MEDS ORDERED: Chlorhexidine Gluconate 2% 1 Pack (2 Cloths) TOPICAL PRN (04:00)
[2018-05-01] MEDS ORDERED: Chlorhexidine Gluconate 2% 1 Pack (2 Cloths) TOPICAL SCH (04:00)
[2018-05-01 04:14] LABS: Baso # (Auto) 0.2 th/mm3 (0.0-0.2); Baso % (Auto) 0.3 % (0.0-2.0); Eos # (Auto) 0.1 th/mm3 (0.0-0.4); Eos % (Auto) 0.1 % (0.0-4.0); Hematocrit 35.1 % (35.0-46.0); Hemoglobin 10.5 gm/dL (11.6-15.3); Lymph # (Auto) 1.2 th/mm3 (1.0-4.8); Lymph % (Auto) 1.8 % (9.0-44.0); Mean Corpuscular Hemoglobin 29.1 pg (27.0-34.0); Mean Corpuscular Volume 97.4 fL (80.0-100.0); Mono # (Auto) 3.3 th/mm3 (0.0-0.9); Mono % (Auto) 5.1 % (0.0-8.0); Neut # (Auto) 59.4 th/mm3 (1.8-7.7); Neut % (Auto) 92.7 % (16.0-70.0); Platelet Count 308 th/mm3 (150-450); Red Cell Distribution Width 17.9 % (11.6-17.2); White Blood Count 64.1 th/mm3 (4.0-11.0)
[2018-05-01 04:18] LABS: Mean Corpuscular HGB Conc 29.9 % (32.0-36.0)
[2018-05-01 04:22] LABS: Activated Partial Thrombo Time 36.4 sec (23.4-31.7); INR 1.6 Ratio; Prothrombin Time 15.8 sec (9.8-11.6)
[2018-05-01 04:38] LABS: Albumin 2.3 g/dL (3.4-5.0); Calcium 6.9 mg/dL (8.5-10.1); Carbon Dioxide 18.8 meq/L (21.0-32.0); Phosphorus 5.5 mg/dL (2.5-4.9); Potassium 5.4 meq/L (3.5-5.1); Total Protein 5.5 g/dL (6.4-8.2)
[2018-05-01 04:40] LABS: Troponin I 2.9 ng/mL (0.02-0.05)
[2018-05-01 04:43] LABS: Metamyelocytes 4 % (0-1); Monocytes 5 % (0-8)
[2018-05-01 04:44] LABS: Platelet Estimate Normal (Normal)
[2018-05-01 04:45] LABS: Burr Cells 1+; Platelet Morphology Normal (Normal)
[2018-05-01 05:10] LABS: Creatine Kinase MB 32.2 ng/mL (0.5-3.6)
[2018-05-01 05:11] LABS: CKMB Percent 5.4 % (0.0-4.0)
--- NOTE | 2018-05-01 07:07 | P.PNCC ---
Subjective Subjective Remarks/Hospital Course: 82-year-old female presents from local nursing facility where she was found to be unresponsive by nursing staff. According to paramedics who provided a history patient has severe dementia is a recent 2-3-day resident of the nursing facility and was reportedly found by paramedics to be unresponsive pulseless without heart sounds and with apnea. ACLS protocol and resuscitative measures were initiated immediately with assisted ventilations and CPR as well as IV access administration of medications and intubation. According to paramedics in the field patient received 4 mg of epinephrine and 50 mEq of sodium bicarbonate. Patient also received 500 mL's of normal saline bolus. Patient was initially identified to be briefly and a bradycardic PEA then deteriorated to asystole and then was in a tachycardic PEA. Patient had return of spontaneous circulation upon arrival to the emergency department. At time of transfer from EMS stretcher to ED stretcher breath sounds were auscultated bilaterally and no borborygmi was identified prior to transfer to ED stretcher and upon transfer to ED structure patient continued to have bilateral breath sounds with no borborygmi. No difficulty with ambulation assisted ventilations. Patient did have faint pulse femoral he as well as palpable pulse with carotids and no blood pressure had been reported. Ongoing IV fluids were administered. Past medical history includes dementia and COPD per paramedics. The initial chest x-ray in the emergency department showed left pneumothorax for which the chest tube was placed by ED attending. The patient' s condition and poor prognosis was discussed with the family members by ED attending. It was found that the patient was supposed to be DNR at the longterm due to end-stage dementia, however the paperwork was never finished. The patient's family expressed wishes to place a DNR order on the chart. SUBJ 05/01/18: Very critical on full life support. Maximized on pressors dopamine at 20 mcg/kg/min, Levophed at 15 mcg/min, epinephrine at 5 mcg/min. Pupils are dilated and fixed however patient has respiratory effort and securing the vent. Patient appears terminal. We will not escalate care at this point due to futility. Family may proceed with withdrawal of care and comfort measures Objective Vital Signs / I&O: Vital Signs 04/30/18 19:53 04/30/18 19:54 04/30/18 19:58 Pulse Rate 59 L Respiratory Rate 16 16 Blood Pressure Pulse Oximetry 98 100 12/13/18 20:06 04/30/18 20:42 04/30/18 20:49 Pulse Rate 44 L 70 Respiratory Rate 16 18 18 Blood Pressure 132/57 L Pulse Oximetry 100 95 100 04/30/18 20:52 04/30/18 20:55 04/30/18 21:06 Pulse Rate 70 79 68 Respiratory Rate 18 18 18 Blood Pressure 124/56 L 122/61 Pulse Oximetry 98 96 04/30/18 21:09 04/30/18 21:10 04/30/18 21:11 Pulse Rate 69 74 Respiratory Rate 18 Blood Pressure 99/48 L Pulse Oximetry 97 92 L 94 L 04/30/18 21:12 04/30/18 21:26 04/30/18 21:51 Pulse Rate 70 62 64 Respiratory Rate 18 18 18 Blood Pressure 111/50 L 103/48 L 126/56 L Pulse Oximetry 93 L 93 L 04/30/18 22:08 04/30/18 22:29 04/30/18 22:30 Pulse Rate 58 L Respiratory Rate 18 18 Blood Pressure 127/58 L Pulse Oximetry 100 95 04/30/18 22:37 04/30/18 22:45 04/30/18 23:00 Pulse Rate 128 H Respiratory Rate 18 18 Blood Pressure 128/59 L 124/57 L Pulse Oximetry 91 L 04/30/18 23:15 04/30/18 23:30 04/30/18 23:46 Pulse Rate 129 H 130 H 130 H Respiratory Rate 20 20 20 Blood Pressure 118/56 L 124/56 L 111/49 L Pulse Oximetry 90 L 89 L 87 L 05/01/18 00:00 05/01/18 00:05 05/01/18 00:16 Pulse Rate 132 H 133 H 133 H Respiratory Rate 25 H 25 H 25 H Blood Pressure 105/63 130/58 L Pulse Oximetry 88 L 88 L 87 L 05/01/18 00:31 05/01/18 00:45 05/01/18 01:00 Pulse Rate 133 H 133 H 132 H Respiratory Rate 30 H 26 H 27 H Blood Pressure 130/77 134/53 L Pulse Oximetry 90 L 99 90 L 05/01/18 01:01 05/01/18 01:15 05/01/18 01:45 Pulse Rate 132 H 130 H 128 H Respiratory Rate 27 H 27 H 26 H Blood Pressure 125/65 110/58 L 119/77 Pulse Oximetry 90 L 87 L 96 05/01/18 02:00 05/01/18 02:01 05/01/18 02:16 Pulse Rate 128 H 128 H 128 H Respiratory Rate 27 H 28 H 27 H Blood Pressure 127/46 L 127/44 L Pulse Oximetry 91 L 98 93 L 05/01/18 02:31 05/01/18 02:52 05/01/18 03:00 Pulse Rate 127 H 124 H 124 H Respiratory Rate 28 H 29 H 27 H Blood Pressure 147/59 H 125/83 Pulse Oximetry 92 L 95 95 05/01/18 03:11 05/01/18 03:20 05/01/18 03:31 Pulse Rate 123 H 123 H 123 H Respiratory Rate 28 H 27 H 27 H Blood Pressure 141/71 H 137/85 137/65 Pulse Oximetry 97 99 99 05/01/18 03:36 05/01/18 03:40 05/01/18 03:46 Pulse Rate 79 122 H Respiratory Rate 25 H 16 27 H Blood Pressure 130/59 L Pulse Oximetry 97 98 05/01/18 04:00 05/01/18 04:11 05/01/18 04:17 Pulse Rate 120 H 119 H 118 H Respiratory Rate 27 H 26 H 27 H Blood Pressure 135/65 135/53 L Pulse Oximetry 99 99 99 05/01/18 04:46 05/01/18 05:00 05/01/18 05:13 Pulse Rate 114 H 112 H 97 H Respiratory Rate 27 H 26 H 26 H Blood Pressure 135/71 77/52 L Pulse Oximetry 98 98 98 05/01/18 05:16 05/01/18 05:24 05/01/18 05:31 Pulse Rate 94 H 91 H 100 H Respiratory Rate 25 H 22 26 H Blood Pressure 52/26 L 51/25 L 58/32 L Pulse Oximetry 96 97 97 05/01/18 05:38 Pulse Rate 101 H Respiratory Rate 22 Blood Pressure 56/33 L Pulse Oximetry 95 Intake & Output 04/30/18 05/01/18 05/01/18 18:59 06:59 18:59 Intake Total 750 / 750 Balance 750 / 750 Weight 55.5 kg Intake: IV 750 / 750 DOPamine 400 MG/250 ML Premix 250 / 250 400 mg In 250 ml @ 0 mls/hr IV. CONT .STK-MED ONE Rx#:[id number] Levophed Inj 4 MG In NS Inj 246 500 / 500 ML @ 2 MCG/MIN 7.5 mls/hr IV. SIG TITRATE PRN Rx#:[id number] Other: Date of Last Bowel Movement 04/30/18 Weight On Admission 55.5 kg Result Diagrams: 05/01/18 03:29 05/01/18 03:29 Objective Remarks: GENERAL: Elderly female unconscious on the vent pupils dilated and fixed in profound shock SKIN: warm/dry. HEAD: Normocephalic. EYES: No scleral icterus. Pupils dilated nonreactive to light. NECK: Supple, trachea midline. No JVD or lymphadenopathy. Orotracheally intubated CARDIOVASCULAR: Regular rate and rhythm to auscultation; in profound shock on maximum doses of 3 pressors RESPIRATORY: Air entry equal bilaterally. Coarse bilateral breath sounds heard GASTROINTESTINAL: Abdomen soft, nondistended. MUSCULOSKELETAL: No cyanosis, or edema. NEURO: Comatose patient with dilated fixed pupil. GCS 3 T. No withdrawal to noxious stimuli. Assessment and Plan - Assessment and Plan Plan: ASSESSMENT/PLAN Anoxic brain injury -Patient does not meet criteria for brain due to respiratory effort however appears to be proceeding to brain -Too unstable for further [employer] imaging Cardiac arrest -Unknown downtime -Extremely poor prognosis, DNR -Palliative care consultation possible withdrawal of care -Not a candidate for hypothermia protocol due to DNR, and severe anoxic injury -Series of troponins and EKGs Cardiogenic shock -Currently on epinephrine at 8 mcg/min, Levophed at 15 mcg/min, dopamine at 20 mcg/kg/min -Due to futility will not add any other pressors no further escalation of care -Recommend comfort measures Respiratory failure -Due to above -Underlying severe pulmonary fibrosis -Mechanical ventilation -DuoNeb scheduled and as needed -Steroid Alzheimer disease -Namenda -Rivastigmine -Palliative care consultation pending Diabetes mellitus -Insulin sliding scale Anemia Possible GI bleed -Melanotic stool -Protonix IV twice daily -Transfuse PRBC as needed to keep hemoglobin above 7 Pneumothorax -From CPR -Chest tube placed by ED attending -Daily CXR DVT GI prophylaxis -Teds SCDs -Hold pharmacological DVT prophylaxis due to possible GI bleed -Protonix IV twice daily 35 minutes of critical care This patient is extremely critical and appears terminal. She has severe anoxic injury and appears to be progressing to brain , she has refractory cardiogenic shock now with acute renal failure respiratory failure and neurological failure. I recommend withdrawal of life support and comfort measures. Await palliative care consultation
--- NOTE | 2018-05-01 07:12 | ECG ---
Date Performed: 05/01/2018 Time Performed: 06:18:12 PTAGE: 82 years EKG: Sinus tachycardia Leftward axis Left bundle branch block Abnormal ECG NO PREVIOUS TRACING DOCTOR: Hi Rosales Interpretating Date/Time 05/01/2018 07:11:34
--- NOTE | 2018-05-01 07:15 | ECG ---
Date Performed: 04/30/2018 Time Performed: 22:37:48 PTAGE: 82 years EKG: Sinus arrhythmia with PVC(s) with 1st degree A-V block. Left axis deviation Left bundle bra nch block Abnormal ECG NO PREVIOUS TRACING DOCTOR: Hi Rosales Interpretating Date/Time 05/01/2018 07:14:56
--- NOTE | 2018-05-01 07:19 | ECG ---
Date Performed: 04/30/2018 Time Performed: 19:59:16 PTAGE: 82 years EKG: POSSIBLE ACCELERATED JUNCTIONAL RHYTHM LEFT AXIS DEVIATION RIGHT BUNDLE BRANCH BLOCK ST DEV IATION AND MARKED T-WAVE ABNORMALITY, CONSIDER ANTEROLATERAL ISCHEMIA ABNORMAL ECG NO PREVIOUS TRACING DOCTOR: Hi Rosales Interpretating Date/Time 05/01/2018 07:16:57
[2018-05-01] MEDS ORDERED: DOPamine 800 MG/500 ML Premix 800 MG/500 ML PLAST..BAG IV.CONT SCH ×2 (07:30)
[2018-05-01] MEDS ORDERED: Norepinephrine Inj 4 MG in Sodium Chlor 0.9% Inj 246 ML IV.SIG SCH (07:30)
[2018-05-01] MEDS ORDERED: Chlorhexidine 0.12% Oral Kit 15 ML UDC OROPHARYNG SCH (08:00)
[2018-05-01] MEDS ORDERED: Multivitamin/Minerals Therapeutic Tablet PO SCH (09:00)
[2018-05-01] MEDS ORDERED: Pantoprazole Inj 40 MG Vial IV.PUSH SCH (09:00)
[2018-05-01] MEDS ORDERED: predniSONE 10 MG Tablet PO SCH (09:00)
[2018-05-01] MEDS ORDERED: Citalopram 20 MG Tablet PO SCH (09:00)
[2018-05-01] MEDS ORDERED: RIVASTIGMINE 1.5 MG PO SCH (09:00)
[2018-05-01] MEDS ORDERED: Senna/Docusate Sodium 8.6/50 MG Tablet PO SCH (09:00)
[2018-05-01] MEDS ORDERED: Tiotropium Bromide 18 MCG/ACT Inhaler INH SCH (09:00)
[2018-05-01] MEDS ORDERED: Non-Formulary Drug (Ipratropium-Albuterol [Combivent Respimat] 1 PUFF) INHALATION SCH (09:00)
[2018-05-01] MEDS ORDERED: Budesonide-Formoterol 80/4.5 MCG 6.9 GM Inhaler INH SCH (09:00)
--- NOTE | 2018-05-01 11:44 | P.CONPAL ---
Consult Service: Palliative Care Requesting Physician: Fabian Delacruz Reason for Consult: a. To assist with evaluation and management of symptoms including: pain, dyspnea b. To assist medical decision maker(s) with: better understanding of current medical conditions; weighing benefits/burdens of medical treatment options; making medical treatment decisions. Primary Care Provider: Magnus Gil MD History of Present Illness History of Present Illness: Ms. Jean Baptiste is an 82 year old female with past medical history of dementia, COPD, hypertension, chronic pain, iron deficiency anemia, hyperlipidemia, osteoarthritis, GERD and recent bilateral pneumonia/sepsis. 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 She was admitted to [facility] on 04/15/18 with pneumonia and sepsis. She was discharged to [facility] for rehab on 04/25/18. Patient presented to [facility] ER on 04/30/18 after she was found unresponsive at [facility]. Patient was found pulseless and apneic. ACLS was started. She received Epi x 4, Bicarb x1. Upon arrival to the ER she was briefly bradycardic, PEA then became asystolic and then tachycardic PEA. She has return of spontaneous circulation. She remains in ICU on mech vent on Dopamine, Levophed and Epinephrine. Left chest tube was placed for pneumothorax. Palliative care was consulted to assist with further clarification of treatment goals. Met with 2 sons (son Luis is Health care surrogate), daughter in law and granddaughter. Family has elected to proceed with transition to comfort measures with compassionate withdrawal of life support. Anticipatory guidance provided. Questions answered. Function/Cognitive Trajectory: Patient was a long-term resident of [place]. Was discharged to [facility] following recent hospitalization. Patient was confused at baseline given underlying dementia, required assistance with feeding, dressing and bathing. She was wheelchair to bedbound. Incontinent of bowel and bladder. Was tolerating mechanical soft diet though had recently not been eating. Review of Systems unobtainable due to mental status PMFSH - History History Provided By: Auto Claim Representative / EMT - Medical History Medical History: Medical History (Last Reviewed 04/24/18 @ 13:28 by Katherine Jo) Alzheimer disease COPD (chronic obstructive pulmonary disease) History of hysterectomy Hyperlipidemia Hypertension Osteoarthritis - Family History Family History: Family History (Last Updated 04/15/18 @ 22:25 by Tabatha Singh MD) Other Diabetes mellitus - Social History I have reviewed the patient's Social History: Yes - Tobacco History Second Hand Smoke Exposure: No Tobacco Use In Past 30 Days: No (unknown) Smoking Status: Light tobacco smoker Tobacco Type: Cigarettes Years Smoked: 60 Smoking End Date: 2007 - Alcohol History How Often Do You Have a Drink Containing Alcohol: Never - Substance Use History Substance History: No History of Abuse - Travel History Recent Travel in the [place] Within the Last 8 Weeks: No Recent Travel Out of the Country Within the Last 8 Weeks: No - Immunization History Tetanus Immunization: Unsure Medications and Allergies Active Medications: Active Medications Acetaminophen (Tylenol) 650 mg PO Q6H PRN PRN Reason: PAIN 1-10 AND/OR FEVER >101F Al Hydroxide/Mg Hydroxide (Milk Of Esdras Liq) 30 ml PO Q12H PRN PRN Reason: Mild Constipation Albuterol (Duoneb Neb (Prn)) 1 ampul NEB Q2HR NEB PRN PRN Reason: WHEEZING Last Admin: 05/01/18 08:14 Dose: 1 ampul Albuterol (Duoneb Neb (Prn)) 1 ampul NEB Q6HR WHILE AWAKE NEB PRN PRN Reason: SOB/Wheezing Albuterol (Ventolin Hfa Inh) 1 puff INH BID [facility] Bisacodyl (Dulcolax Supp) 10 mg RECTAL DAILY PRN PRN Reason: SEVERE CONSITIPATION Budesonide/Formoterol Fumarate (Symbicort 80/4.5 Mcg Inh) 1 puff INH BID [facility] Chlorhexidine Gluconate (Peridex 0.12% Oral Kit) 15 ml OROPHARYNG BID@0800, 2000 [facility] Last Admin: 05/01/18 09:16 Dose: 15 ml Chlorhexidine Gluconate (Chlorhexidine 2% Cloth) 3 pack TOPICAL DAILY@0400 [facility] Stop: 05/06/18 03:59 Last Admin: 05/01/18 06:31 Dose: 3 pack Chlorhexidine Gluconate (Chlorhexidine 2% Cloth) 3 pack TOPICAL DAILY@0400 PRN PRN Reason: Extra cloth needed Stop: 05/06/18 03:59 Citalopram Hydrobromide (Celexa) 10 mg PO DAILY [facility] Last Admin: 05/01/18 09:16 Dose: Not Given Cyanocobalamin (Vitamin B12) 1,000 mcg PO DAILY [facility] Last Admin: 05/01/18 09:17 Dose: Not Given Sodium Chloride (Ns Inj) 1,000 mls @ 84 mls/hr IV.CONT .[id number] [facility] Last Admin: 05/01/18 09:51 Dose: 84 mls/hr Epinephrine HCl 2 mg/ Dextrose 250 mls @ 60 mls/hr IV.CONT CONT [facility]; Protocol Norepinephrine Bitartrate 4 mg (/ Sodium Chloride) 250 mls @ 56.25 mls/hr IV.SIG CONT ALEX; Protocol Dopamine HCl/Dextrose (Dopamine 800 Mg/500 Ml Premix) 800 mg in 500 mls @ 46.139 mls/hr IV.CONT CONT ALEX; Protocol Lactulose (Lactulose Liq) 30 ml PO DAILY PRN PRN Reason: SEVERE CONSITIPATION Memantine (Namenda) 10 mg PO BID [facility] Last Admin: 05/01/18 09:17 Dose: Not Given Midazolam HCl (Versed Inj) 2 mg IV.PUSH Q1H PRN PRN Reason: SEDATION Miscellaneous (Pill Splitter) 1 each OTHER UNSCH PRN PRN Reason: PILL SPLITTER Miscellaneous Medication () 1 each OROPHARYNG 0000,0400,1200,1600 [facility] Last Admin: 05/01/18 06:31 Dose: 1 each Morphine Sulfate (Morphine Inj) 2 mg IV.PUSH Q2H PRN PRN Reason: PAIN SCALE 6 TO 10 Multivitamins/Minerals (Theragran-M) 1 tab PO DAILY [facility] Last Admin: 05/01/18 09:17 Dose: Not Given Ondansetron HCl (Zofran Inj) 4 mg IV.PUSH Q6H PRN PRN Reason: NAUSEA OR VOMITING Pantoprazole Sodium (Protonix Inj) 40 mg IV.PUSH DAILY [facility] Last Admin: 05/01/18 09:50 Dose: 40 mg Prednisone (Deltasone) 10 mg PO BID [facility] Last Admin: 05/01/18 09:16 Dose: Not Given Rivastigmine Tartrate (Exelon) 1.5 mg PO BID [facility] Last Admin: 05/01/18 09:17 Dose: Not Given Senna/Docusate Sodium (Joy-Colace) 1 tab PO BID [facility] Last Admin: 05/01/18 09:17 Dose: Not Given Sennosides (Senokot) 17.2 mg PO Q12H PRN PRN Reason: Moderate Constipation Sodium Chloride (Ns Flush) 2 ml IV.FLUSH BID [facility] Last Admin: 05/01/18 09:17 Dose: 2 ml Sodium Chloride (Ns Flush) 2 ml IV.FLUSH PRN PRN PRN Reason: FLUSH AFTER USING IV ACCESS Terbutaline Sulfate (Brethine Inj) 1 mg SQ ONCE PRN PRN Reason: Extravasation Terbutaline Sulfate (Brethine Inj) 1 mg SQ UNSCH PRN PRN Reason: For Extravasation Tiotropium [place] (Spiriva 18 Mcg Inh) 18 mcg INH DAILY [facility] Trazodone HCl (Desyrel) 50 mg PO DAILY@1800 [facility] Allergies Allergy/AdvReac Type Severity Reaction Status Date / Time No Known Allergies Allergy Verified 04/15/18 15:49 Home Medications Medication Instructions Recorded Confirmed Type citalopram [Celexa] 10 mg PO DAILY 04/15/18 04/30/18 History cyanocobalamin (vitamin B-12) 1,000 mcg PO DAILY 04/15/18 04/30/18 History [Vitamin B-12] ipratropium-albuterol [Combivent 1 puff INHALATION BID 04/15/18 04/30/18 History Respimat] memantine [Namenda] 10 mg PO BID 04/15/18 04/30/18 History rivastigmine tartrate 1.5 mg PO BID 04/15/18 04/30/18 History trazodone 50 mg PO QPM 04/15/18 04/30/18 History Advance Directives Living Will: Yes Healthcare Surrogate: Yes Health Care Surrogate Name and Number: Luis Jean Baptiste, [facility]: [phone] Power of Powerhouse Mechanic Helper: Yes Power of Powerhouse Mechanic Helper Name: Luis Jean Baptiste Power of Powerhouse Mechanic Helper Relationship to Patient: Children Documented care wishes: Patient did not want to be artificially prolonged on life support. Family reports they previously signed a [place] DO NOT RESUSCITATE order at [place]. Family/friends goals: Family desires transition to comfort focused care with compassionate withdrawal of life support. NO CODE. Ethical and Legal Issues: Patient is not capacitated to make her own healthcare decisions, will not regain capacity. Designation of healthcare surrogate names her son Luis Jean Baptiste as designated healthcare surrogate. Physical Exam Vital Signs: Vital Signs - 24 hr 04/30/18 19:53 12/13/18 19:54 04/30/18 19:58 Pulse Rate 59 L Respiratory Rate 16 16 Blood Pressure Pulse Oximetry 98 100 04/30/18 20:06 04/30/18 20:42 04/30/18 20:49 Pulse Rate 44 L 70 Respiratory Rate 16 18 18 Blood Pressure 132/57 L Pulse Oximetry 100 95 100 04/30/18 20:52 04/30/18 20:55 04/30/18 21:06 Pulse Rate 70 79 68 Respiratory Rate 18 18 18 Blood Pressure 124/56 L 122/61 Pulse Oximetry 98 96 04/30/18 21:09 04/30/18 21:10 04/30/18 21:11 Pulse Rate 69 74 Respiratory Rate 18 Blood Pressure 99/48 L Pulse Oximetry 97 92 L 94 L 04/30/18 21:12 04/30/18 21:26 04/30/18 21:51 Pulse Rate 70 62 64 Respiratory Rate 18 18 18 Blood Pressure 111/50 L 103/48 L 126/56 L Pulse Oximetry 93 L 93 L 04/30/18 22:08 04/30/18 22:29 04/30/18 22:30 Pulse Rate 58 L Respiratory Rate 18 18 Blood Pressure 127/58 L Pulse Oximetry 100 95 04/30/18 22:37 04/30/18 22:45 04/30/18 23:00 Pulse Rate 128 H Respiratory Rate 18 18 Blood Pressure 128/59 L 124/57 L Pulse Oximetry 91 L 04/30/18 23:15 04/30/18 23:30 04/30/18 23:46 Pulse Rate 129 H 130 H 130 H Respiratory Rate 20 20 20 Blood Pressure 118/56 L 124/56 L 111/49 L Pulse Oximetry 90 L 89 L 87 L 05/01/18 00:00 05/01/18 00:05 05/01/18 00:16 Pulse Rate 132 H 133 H 133 H Respiratory Rate 25 H 25 H 25 H Blood Pressure 105/63 130/58 L Pulse Oximetry 88 L 88 L 87 L 05/01/18 00:31 05/01/18 00:45 05/01/18 01:00 Pulse Rate 133 H 133 H 132 H Respiratory Rate 30 H 26 H 27 H Blood Pressure 130/77 134/53 L Pulse Oximetry 90 L 99 90 L 05/01/18 01:01 05/01/18 01:15 05/01/18 01:45 Pulse Rate 132 H 130 H 128 H Respiratory Rate 27 H 27 H 26 H Blood Pressure 125/65 110/58 L 119/77 Pulse Oximetry 90 L 87 L 96 05/01/18 02:00 05/01/18 02:01 05/01/18 02:16 Pulse Rate 128 H 128 H 128 H Respiratory Rate 27 H 28 H 27 H Blood Pressure 127/46 L 127/44 L Pulse Oximetry 91 L 98 93 L 05/01/18 02:31 05/01/18 02:52 05/01/18 03:00 Pulse Rate 127 H 124 H 124 H Respiratory Rate 28 H 29 H 27 H Blood Pressure 147/59 H 125/83 Pulse Oximetry 92 L 95 95 05/01/18 03:11 05/01/18 03:20 05/01/18 03:31 Pulse Rate 123 H 123 H 123 H Respiratory Rate 28 H 27 H 27 H Blood Pressure 141/71 H 137/85 137/65 Pulse Oximetry 97 99 99 05/01/18 03:36 05/01/18 03:40 05/01/18 03:46 Pulse Rate 79 122 H Respiratory Rate 25 H 16 27 H Blood Pressure 130/59 L Pulse Oximetry 97 98 05/01/18 04:00 05/01/18 04:11 05/01/18 04:17 Pulse Rate 120 H 119 H 118 H Respiratory Rate 27 H 26 H 27 H Blood Pressure 135/65 135/53 L Pulse Oximetry 99 99 99 05/01/18 04:46 05/01/18 05:00 05/01/18 05:13 Pulse Rate 114 H 112 H 97 H Respiratory Rate 27 H 26 H 26 H Blood Pressure 135/71 77/52 L Pulse Oximetry 98 98 98 05/01/18 05:16 05/01/18 05:24 05/01/18 05:31 Pulse Rate 94 H 91 H 100 H Respiratory Rate 25 H 22 26 H Blood Pressure 52/26 L 51/25 L 58/32 L Pulse Oximetry 96 97 97 05/01/18 05:38 05/01/18 05:50 05/01/18 06:00 Pulse Rate 101 H 108 H 109 H Respiratory Rate 22 26 H 26 H Blood Pressure 56/33 L 118/62 Pulse Oximetry 95 97 98 05/01/18 06:01 05/01/18 06:19 05/01/18 06:30 Pulse Rate 109 H 109 H 108 H Respiratory Rate 26 H 25 H 25 H Blood Pressure 110/56 L 76/49 L 78/48 L Pulse Oximetry 98 98 98 05/01/18 06:43 05/01/18 06:45 05/01/18 06:52 Pulse Rate 107 H 107 H 107 H Respiratory Rate 26 H 26 H 25 H Blood Pressure 69/33 L 67/32 L 75/37 L Pulse Oximetry 97 97 97 05/01/18 07:00 05/01/18 07:15 05/01/18 07:30 Pulse Rate 105 H 105 H 105 H Respiratory Rate 25 H 25 H 25 H Blood Pressure 71/40 L 74/48 L 75/48 L Pulse Oximetry 97 96 97 05/01/18 08:00 05/01/18 08:15 05/01/18 08:30 Pulse Rate 104 H 103 H 103 H Respiratory Rate 25 H 24 25 H Blood Pressure 122/52 L 104/52 L 101/50 L Pulse Oximetry 96 94 L 94 L 05/01/18 09:00 05/01/18 10:00 05/01/18 10:01 Pulse Rate 103 H 101 H Respiratory Rate 25 H 24 Blood Pressure 114/54 L 94/47 L 112/69 Pulse Oximetry 94 L 94 L 05/01/18 10:15 05/01/18 10:30 05/01/18 11:27 Pulse Rate 101 H 101 H Respiratory Rate 23 23 22 Blood Pressure 113/60 112/61 Pulse Oximetry 94 L 94 L 96 I&O: Intake & Output 04/29/18 04/30/18 05/01/18 05/02/18 06:59 06:59 06:59 06:59 Intake Total 750 / 750 1000 / 1000 Output Total 0 / 0 Balance 750 / 750 1000 / 1000 Weight 55.5 kg Physical Exam: CONSTITUTIONAL/GENERAL: This is an elderly, frail patient on mechanical ventilation. TUBES: ETT, PIV, Morejon,, bilateral soft wrist restraints. SKIN: No jaundice, rashes, or lesions. Ecchymoses on upper extremities. No wounds seen anteriorly. Skin temperature cool to touch. HEAD: Atraumatic. Normocephalic. EYES: Pupils fixed and dilated. ENT: Unable to assess hearing given current condition. Difficult to visualize throat secondary to tubes. Thin oral clear secretions noted. NECK: Trachea midline. CARDIOVASCULAR: Irregularly irregular. RESPIRATORY/CHEST: Agonal respirations on mechanical ventilation. GASTROINTESTINAL: Abdomen soft, distended. Bowel sounds hypoactive. GENITOURINARY: Without palpable bladder distension. Morejon catheter in place. MUSCULOSKELETAL: Extremities with mottling, cool to touch. LYMPHATICS: Not examined. NEUROLOGICAL: Unresponsive. Diagnostic Tests Laboratory: Laboratory Results - last 72 hr 04/30/18 04/30/18 04/30/18 20:00 20:08 20:08 WBC RBC Hgb POC Hgb (Calc) 6.8 L* Hct POC Hct 20.0 L* MCV MCH MCHC RDW Plt Count MPV Prelim Diff (Auto) Neut % (Auto) Lymph % (Auto) [place] % (Auto) Eos % (Auto) Baso % (Auto) Neut # (Auto) Lymph # (Auto) [place] # (Auto) Eos # (Auto) Baso # (Auto) WBC Differential Seg Neuts % (Manual) Band Neuts % (Manual) Lymphocytes % (Manual) Monocytes % (Manual) Eosinophils % (Manual) Metamyelocytes % (Man) Myelocytes % (Man) Promyelocytes % (Man) Abs Neuts (Manual) Differential Comment Platelet Estimate Platelet Morphology Stacie Cells Acanthocytes (Spur) Keratocytes PT INR APTT Puncture Site Cancelled Patient Temperature Cancelled O2 Saturation Cancelled ABG pH Cancelled ABG pCO2 Cancelled ABG pO2 Cancelled ABG HCO3 Cancelled ABG O2 Content Cancelled ABG Base Excess Cancelled ABG Methemoglobin Cancelled Zbigniew Test Cancelled Hemoglobin Cancelled Carboxyhemoglobin Cancelled O2 Delivery Device Cancelled Liter Flow Cancelled Vent Setting Cancelled Inspired O2 Cancelled Critical Value Cancelled POC Sodium 138 Sodium POC Potassium 4.5 Potassium POC Chloride 100 L Chloride Carbon Dioxide Anion Gap POC BUN 19 BUN Creatinine POC Creatinine 0.7 Estimated GFR POC Glucose 368 H Random Glucose Calcium Calcium Adj for Albumin Phosphorus Magnesium Total Bilirubin AST ALT Alkaline Phosphatase Total Creatine Kinase CK-MB (CK-2) CK-MB (CK-2) % Troponin I B-Natriuretic Peptide Total Protein Albumin Lipase Nasal Screen MRSA (PCR) Blood Type O Positive Blood Type Recheck Not needed Antibody Screen Negative MTS Gel Crossmatch See Detail 12/13/18 12/13/18 12/13/18 20:08 20:08 20:08 WBC 17.2 H RBC 2.28 L Hgb 6.7 L* POC Hgb (Calc) Hct 22.4 L POC Hct MCV 98.5 MCH 29.3 MCHC 29.7 L RDW 17.1 Plt Count 200 D MPV 8.7 Prelim Diff (Auto) Slide review pending Neut % (Auto) 75.3 H Lymph % (Auto) 20.7 [place] % (Auto) 3.2 Eos % (Auto) 0.1 Baso % (Auto) 0.7 Neut # (Auto) 13.0 H Lymph # (Auto) 3.6 [place] # (Auto) 0.6 Eos # (Auto) 0.0 Baso # (Auto) 0.1 WBC Differential Manual diff final Seg Neuts % (Manual) 52 Band Neuts % (Manual) 9 H Lymphocytes % (Manual) 30 Monocytes % (Manual) 2 Eosinophils % (Manual) 1 Metamyelocytes % (Man) 3 H Myelocytes % (Man) 2 H Promyelocytes % (Man) 1 H Abs Neuts (Manual) 11.5 H Differential Comment . Platelet Estimate Normal Platelet Morphology Normal Stacie Cells Acanthocytes (Spur) Occ H Keratocytes Occ H PT INR APTT Puncture Site Patient Temperature O2 Saturation ABG pH ABG pCO2 ABG pO2 ABG HCO3 ABG O2 Content ABG Base Excess ABG Methemoglobin Zbigniew Test Hemoglobin Carboxyhemoglobin O2 Delivery Device Liter Flow Vent Setting Inspired O2 Critical Value POC Sodium Sodium POC Potassium Potassium POC Chloride Chloride Carbon Dioxide Anion Gap POC BUN BUN Creatinine POC Creatinine Estimated GFR POC Glucose Random Glucose Calcium Calcium Adj for Albumin Phosphorus Magnesium Total Bilirubin AST ALT Alkaline Phosphatase Total Creatine Kinase CK-MB (CK-2) CK-MB (CK-2) % Troponin I B-Natriuretic Peptide 44 Total Protein Albumin Lipase Cancelled Nasal Screen MRSA (PCR) Blood Type Blood Type Recheck Antibody Screen MTS Gel Crossmatch 04/30/18 04/30/18 04/30/18 20:08 20:08 20:08 WBC RBC Hgb POC Hgb (Calc) Hct POC Hct MCV MCH MCHC RDW Plt Count MPV Prelim Diff (Auto) Neut % (Auto) Lymph % (Auto) [place] % (Auto) Eos % (Auto) Baso % (Auto) Neut # (Auto) Lymph # (Auto) [place] # (Auto) Eos # (Auto) Baso # (Auto) WBC Differential Seg Neuts % (Manual) Band Neuts % (Manual) Lymphocytes % (Manual) Monocytes % (Manual) Eosinophils % (Manual) Metamyelocytes % (Man) Myelocytes % (Man) Promyelocytes % (Man) Abs Neuts (Manual) Differential Comment Platelet Estimate Platelet Morphology [place] Cells Acanthocytes (Spur) Keratocytes PT 12.4 H INR 1.2 APTT 41.3 H Puncture Site Patient Temperature O2 Saturation ABG pH ABG pCO2 ABG pO2 ABG HCO3 ABG O2 Content ABG Base Excess ABG Methemoglobin Zbigniew Test Hemoglobin Carboxyhemoglobin O2 Delivery Device Liter Flow Vent Setting Inspired O2 Critical Value POC Sodium Sodium 142 POC Potassium Potassium 4.6 POC Chloride Chloride 105 Carbon Dioxide 22.3 Anion Gap 15 POC BUN BUN 18 Creatinine 0.93 POC Creatinine Estimated GFR 58 L POC Glucose Random Glucose 370 H Calcium 7.0 L* Calcium Adj for Albumin 8.7 Phosphorus Magnesium 2.2 Total Bilirubin 0.2 AST 394 H ALT 465 H Alkaline Phosphatase 85 Total Creatine Kinase 94 Cancelled CK-MB (CK-2) CK-MB (CK-2) % Troponin I 0.07 H Cancelled B-Natriuretic Peptide Total Protein 4.3 L Albumin 1.9 L Lipase 228 Nasal Screen MRSA (PCR) Blood Type Blood Type Recheck Antibody Screen MTS Gel Crossmatch 04/30/18 04/30/18 05/01/18 21:00 22:30 01:36 WBC RBC Hgb POC Hgb (Calc) Hct POC Hct MCV MCH MCHC RDW Plt Count MPV Prelim Diff (Auto) Neut % (Auto) Lymph % (Auto) [place] % (Auto) Eos % (Auto) Baso % (Auto) Neut # (Auto) Lymph # (Auto) [place] # (Auto) Eos # (Auto) Baso # (Auto) WBC Differential Seg Neuts % (Manual) Band Neuts % (Manual) Lymphocytes % (Manual) Monocytes % (Manual) Eosinophils % (Manual) Metamyelocytes % (Man) Myelocytes % (Man) Promyelocytes % (Man) Abs Neuts (Manual) Differential Comment Platelet Estimate Platelet Morphology Stacie Cells Acanthocytes (Spur) Keratocytes PT INR APTT Puncture Site Right femoral Patient Temperature 98.6 O2 Saturation 98 ABG pH 7.01 L* ABG pCO2 61 H* ABG pO2 444 H ABG HCO3 15 L* ABG O2 Content 9.3 L ABG Base Excess -14.4 L ABG Methemoglobin 0.7 Zbigniew Test Hemoglobin 5.9 L* Carboxyhemoglobin 1.2 O2 Delivery Device Ventilator Liter Flow Vent Setting Inspired O2 100 Critical Value Yes POC Sodium Sodium POC Potassium Potassium POC Chloride Chloride Carbon Dioxide Anion Gap POC BUN BUN Creatinine POC Creatinine Estimated GFR POC Glucose Random Glucose Calcium Calcium Adj for Albumin Phosphorus Magnesium Total Bilirubin AST ALT Alkaline Phosphatase Total Creatine Kinase CK-MB (CK-2) CK-MB (CK-2) % Troponin I 2.75 H* D B-Natriuretic Peptide Total Protein Albumin Lipase Nasal Screen MRSA (PCR) Mrsa detected Blood Type Blood Type Recheck Antibody Screen MTS Gel Crossmatch 05/01/18 05/01/18 05/01/18 03:29 03:29 03:29 WBC 64.1 H D RBC 3.60 L Hgb 10.5 L D POC Hgb (Calc) Hct 35.1 POC Hct MCV 97.4 MCH 29.1 MCHC 29.9 L RDW 17.9 H Plt Count 308 D MPV 8.0 Prelim Diff (Auto) Slide review pending Neut % (Auto) 92.7 H Lymph % (Auto) 1.8 L [place] % (Auto) 5.1 Eos % (Auto) 0.1 Baso % (Auto) 0.3 Neut # (Auto) 59.4 H Lymph # (Auto) 1.2 [place] # (Auto) 3.3 H Eos # (Auto) 0.1 Baso # (Auto) 0.2 WBC Differential Manual diff final Seg Neuts % (Manual) 78 H Band Neuts % (Manual) 13 H Lymphocytes % (Manual) Monocytes % (Manual) 5 Eosinophils % (Manual) Metamyelocytes % (Man) 4 H Myelocytes % (Man) Promyelocytes % (Man) Abs Neuts (Manual) 60.9 H Differential Comment . Platelet Estimate Normal Platelet Morphology Normal [place] Cells 1+ H Acanthocytes (Spur) Keratocytes Occ H PT 15.8 H INR 1.6 APTT 36.4 H Puncture Site Patient Temperature O2 Saturation ABG pH ABG pCO2 ABG pO2 ABG HCO3 ABG O2 Content ABG Base Excess ABG Methemoglobin Zbigniew Test Hemoglobin Carboxyhemoglobin O2 Delivery Device Liter Flow Vent Setting Inspired O2 Critical Value POC Sodium Sodium 136 POC Potassium Potassium 5.4 H D POC Chloride Chloride 103 Carbon Dioxide 18.8 L Anion Gap 14 POC BUN BUN 23 H Creatinine 1.26 H POC Creatinine Estimated GFR 41 L POC Glucose Random Glucose 584 H* D Calcium 6.9 L* Calcium Adj for Albumin 8.3 L Phosphorus 5.5 H Magnesium 2.0 Total Bilirubin 1.1 H AST 1180 H ALT 959 H Alkaline Phosphatase 219 H Total Creatine Kinase 594 H CK-MB (CK-2) 32.2 H CK-MB (CK-2) % 5.4 H* Troponin I 2.90 H* D B-Natriuretic Peptide Total Protein 5.5 L D Albumin 2.3 L Lipase Nasal Screen MRSA (PCR) Blood Type Blood Type Recheck Antibody Screen MTS Gel Crossmatch Result Diagrams: 05/01/18 03:29 05/01/18 03:29 Imaging: Chest X-Ray 04/30/18 20:52 CONCLUSION: Left chest tube in good position with resolution of the left pneumothorax Procedures: * 04/30/18 -CPR, intubated, left chest tube placement Patient/Family Conference Present at Family Conference: Met with patient's 2 sons, including son, Luis healthcare surrogate, daughter-in -law, granddaughter and her significant other. Family Conference Time: 60 Family Conference Location: [facility] Issues Discussed: * Palliative care role, purpose, approach * Additional medical, psychosocial, and spiritual history * Patients general health, functional status, and cognitive changes in the months leading up to the current hospitalization * Patient/family understanding of the current medical problems * Patient/family understanding of prognosis * Patients goals of care as best understood from advance directives and/or conversations and/or values * Current medical treatment options and benefits/burdens of those options * Likely scenarios comparing ongoing aggressive care with a transition to comfort measures only * Questions answered to the best of my ability * Palliative care contact information provided Family has elected transition to comfort focused care with compassionate withdrawal of life support. Assessment and Plan - Symptom Scale (1) Dyspnea 0-10 Scale: Unable to quantify (2) Pain 0-10 Scale: Unable to quantify Pertinent Non-Medical Issues: Psychosocial: . Has 3 adult sons. Supported by local sons, daughters in law and grandchildren. Spiritual: Muslim xiomara. [employer] has visited. Legal:Patient is not capacitated to make her own health care decisions, she will not regain capacity. Health care surrogate is her son, Luis Jean Baptiste. Ethical issues impacting care: No known concerns at this time. Important Contacts: Luis Jean Baptiste, son/HCS: [phone] or [phone] Prognosis: Patient is terminal. Code Status: No Code DNR Plan: * Patient is not capacitated to make her own health care decisions, she will not regain capacity. Health care surrogate is her son, Luis Jean Baptiste. * NO CODE * Met with 2 sons (son Luis is Health care surrogate), daughter in law and granddaughter. Family has elected to proceed with transition to comfort measures with compassionate withdrawal of life support. Anticipatory guidance provided. Questions answered. * Declined hospice services at this time. * Fish Grader has visited. * Orders written for comfort measures. * Discussed with Dr. Orantes, Dr. Eagle. * Exhibits B & C on chart signed. * Palliative care number provided. * Palliative care will continue to follow to assist with symptom management as needed. Appreciation Thank you for the opportunity to participate in the care of Shelley Jean Baptiste. Attestation Attestation: To help prompt me to consider important information that might be impacting today's encounter and assessment, information from prior notes written by myself or my colleagues may have been "brought forward" into today's note. My signature on this note, however, is an attestation that I personally performed the exam, history, and/or decision-making noted today, and, unless otherwise indicated, the interactions with patient, family, and staff as well as the review of records all occurred today. I also attest that the listed assessment and stated plan reflect my best clinical judgment today based on the combination of historical information, prior notes, and today's exam/ interactions. When time spent is documented, it refers only to time spent today by the signer, or if indicated, combined time spent today by collaborating physician/nurse practitioner.
[2018-05-01] MEDS ORDERED: Morphine Inj 4 MG/ML Vial IV.PUSH ONE (12:30)
[2018-05-01] MEDS ORDERED: Hyoscyamine Inj 0.5 MG/ML Ampul IV.PUSH ONE (12:30)
[2018-05-01] MEDS ORDERED: Morphine Sulfate Inj 8 MG/ML Vial IV.PUSH ONE (12:30)
[2018-05-01] MEDS ORDERED: Morphine Inj 4 MG/ML Vial IV.PUSH PRN (13:00)
[2018-05-01] MEDS ORDERED: Hyoscyamine Inj 0.5 MG/ML Ampul IV.PUSH PRN (13:00)
[2018-05-01] MEDS ORDERED: Morphine Sulfate Inj 8 MG/ML Vial IV.PUSH PRN (13:00)
[2018-05-01] MEDS ORDERED: Acetaminophen 650 MG Supp RECTAL PRN (13:00)
--- NOTE | 2018-05-01 13:57 | P.DN ---
- Provider Primary care physician: Magnus Gil MD Admitting clinician: Fabian Delacruz Attending physician on admission: Fabian Delacruz Consults: 04/30/18 21:54 Consult to Palliative Care Routine Consulting Provider: Anisa Abel Reason for Consultation: DNR post cardiac arrest Notified:: Service Spoke with:: Robbin Date Notified:: 04/30/18 Time Notified:: 22:01 Ordering Provider: SENTHIL - Admitting Diagnosis (1) Cardiac arrest (2) Acute respiratory failure (3) Pneumothorax (4) Pulmonary fibrosis (5) Dementia (6) Peptic ulcer disease (7) Septic shock - Diagnosis at Time of (1) Anoxic encephalopathy Diagnosis: Principal (2) Cardiogenic shock Diagnosis: Principal (3) Bilateral pneumonia Diagnosis: Principal (4) Cardiac arrest Diagnosis: Principal (5) Acute respiratory failure Diagnosis: Principal (6) Pneumothorax Diagnosis: Principal (7) Pulmonary fibrosis Diagnosis: Secondary (8) Dementia Diagnosis: Secondary (9) Peptic ulcer disease Diagnosis: Secondary - Date and Time Date of admission: 04/30/18 21:42 Date of : 05/01/18 Time of : 12:44 - Summary Procedures: No ICU procedures Brief History: 82-year-old female presents from local [facility] where she was found to be unresponsive by nursing staff. According to paramedics who provided a history patient has severe dementia is a recent 2-3-day resident of the nursing facility and was reportedly found by paramedics to be unresponsive pulseless without heart sounds and with apnea. ACLS protocol and resuscitative measures were initiated immediately with assisted ventilations and CPR as well as IV access administration of medications and intubation. According to paramedics in the field patient received 4 mg of epinephrine and 50 mEq of sodium bicarbonate. Patient also received 500 mL's of normal saline bolus. Patient was initially identified to be briefly and a bradycardic PEA then deteriorated to asystole and then was in a tachycardic PEA. Patient had return of spontaneous circulation upon arrival to the emergency department. At time of transfer from EMS stretcher to ED stretcher breath sounds were auscultated bilaterally and no borborygmi was identified prior to transfer to ED stretcher and upon transfer to ED structure patient continued to have bilateral breath sounds with no borborygmi. No difficulty with ambulation assisted ventilations. Patient did have faint pulse femoral he as well as palpable pulse with carotids and no blood pressure had been reported. Ongoing IV fluids were administered. Past medical history includes dementia and COPD per paramedics. The initial chest x-ray in the emergency department showed left pneumothorax for which the chest tube was placed by ED attending. The patient' s condition and poor prognosis was discussed with the family members by ED attending. It was found that [facility] to [facility]-stage [facility], however the paperwork was never finished. The patient's family expressed wishes to place a DNR order on the chart. Result Diagrams: 05/01/18 03:29 05/01/18 03:29 Significant Findings: Abnormal Lab Results 04/30/18 04/30/18 04/30/18 20:00 20:08 20:08 WBC RBC Hgb POC Hgb (Calc) 6.8 L* Hct POC Hct 20.0 L* MCV MCH MCHC RDW Plt Count MPV Prelim Diff (Auto) Neut % (Auto) Lymph % (Auto) Mckean % (Auto) Eos % (Auto) Baso % (Auto) Neut # (Auto) Lymph # (Auto) Mckean # (Auto) Eos # (Auto) Baso # (Auto) WBC Differential Seg Neuts % (Manual) Band Neuts % (Manual) Lymphocytes % (Manual) Monocytes % (Manual) Eosinophils % (Manual) Metamyelocytes % (Man) Myelocytes % (Man) Promyelocytes % (Man) Abs Neuts (Manual) Differential Comment Platelet Estimate Platelet Morphology Harman Cells Acanthocytes (Spur) Keratocytes PT INR APTT Puncture Site Cancelled Patient Temperature Cancelled O2 Saturation Cancelled ABG pH Cancelled ABG pCO2 Cancelled ABG pO2 Cancelled ABG HCO3 Cancelled ABG O2 Content Cancelled ABG Base Excess Cancelled ABG Methemoglobin Cancelled Zbigniew Test Cancelled Hemoglobin Cancelled Carboxyhemoglobin Cancelled O2 Delivery Device Cancelled Liter Flow Cancelled Vent Setting Cancelled Inspired O2 Cancelled Critical Value Cancelled POC Sodium 138 Sodium POC Potassium 4.5 Potassium POC Chloride 100 L Chloride Carbon Dioxide Anion Gap POC BUN 19 BUN Creatinine POC Creatinine 0.7 Estimated GFR POC Glucose 368 H Random Glucose Calcium Calcium Adj for Albumin Phosphorus Magnesium Total Bilirubin AST ALT Alkaline Phosphatase Total Creatine Kinase CK-MB (CK-2) CK-MB (CK-2) % Troponin I B-Natriuretic Peptide Total Protein Albumin Lipase Nasal Screen MRSA (PCR) Blood Type O Positive Blood Type Recheck Not needed Antibody Screen Negative MTS Gel Crossmatch See Detail 04/30/18 04/30/18 04/30/18 20:08 20:08 20:08 WBC 17.2 H RBC 2.28 L Hgb 6.7 L* POC Hgb (Calc) Hct 22.4 L POC Hct MCV 98.5 MCH 29.3 MCHC 29.7 L RDW 17.1 Plt Count 200 D MPV 8.7 Prelim Diff (Auto) Slide review pending Neut % (Auto) 75.3 H Lymph % (Auto) 20.7 Mckean % (Auto) 3.2 Eos % (Auto) 0.1 Baso % (Auto) 0.7 Neut # (Auto) 13.0 H Lymph # (Auto) 3.6 Mckean # (Auto) 0.6 Eos # (Auto) 0.0 Baso # (Auto) 0.1 WBC Differential Manual diff final Seg Neuts % (Manual) 52 Band Neuts % (Manual) 9 H Lymphocytes % (Manual) 30 Monocytes % (Manual) 2 Eosinophils % (Manual) 1 Metamyelocytes % (Man) 3 H Myelocytes % (Man) 2 H Promyelocytes % (Man) 1 H Abs Neuts (Manual) 11.5 H Differential Comment . Platelet Estimate Normal Platelet Morphology Normal Harman Cells Acanthocytes (Spur) Occ H Keratocytes Occ H PT INR APTT Puncture Site Patient Temperature O2 Saturation ABG pH ABG pCO2 ABG pO2 ABG HCO3 ABG O2 Content ABG Base Excess ABG Methemoglobin Zbigniew Test Hemoglobin Carboxyhemoglobin O2 Delivery Device Liter Flow Vent Setting Inspired O2 Critical Value POC Sodium Sodium POC Potassium Potassium POC Chloride Chloride Carbon Dioxide Anion Gap POC BUN BUN Creatinine POC Creatinine Estimated GFR POC Glucose Random Glucose Calcium Calcium Adj for Albumin Phosphorus Magnesium Total Bilirubin AST ALT Alkaline Phosphatase Total Creatine Kinase CK-MB (CK-2) CK-MB (CK-2) % Troponin I B-Natriuretic Peptide 44 Total Protein Albumin Lipase Cancelled Nasal Screen MRSA (PCR) Blood Type Blood Type Recheck Antibody Screen MTS Gel Crossmatch 04/30/18 04/30/18 04/30/18 20:08 20:08 20:08 WBC RBC Hgb POC Hgb (Calc) Hct POC Hct MCV MCH MCHC RDW Plt Count MPV Prelim Diff (Auto) Neut % (Auto) Lymph % (Auto) Mckean % (Auto) Eos % (Auto) Baso % (Auto) Neut # (Auto) Lymph # (Auto) Mckean # (Auto) Eos # (Auto) Baso # (Auto) WBC Differential Seg Neuts % (Manual) Band Neuts % (Manual) Lymphocytes % (Manual) Monocytes % (Manual) Eosinophils % (Manual) Metamyelocytes % (Man) Myelocytes % (Man) Promyelocytes % (Man) Abs Neuts (Manual) Differential Comment Platelet Estimate Platelet Morphology Stacie Cells Acanthocytes (Spur) Keratocytes PT 12.4 H INR 1.2 APTT 41.3 H Puncture Site Patient Temperature O2 Saturation ABG pH ABG pCO2 ABG pO2 ABG HCO3 ABG O2 Content ABG Base Excess ABG Methemoglobin Zbigniew Test Hemoglobin Carboxyhemoglobin O2 Delivery Device Liter Flow Vent Setting Inspired O2 Critical Value POC Sodium Sodium 142 POC Potassium Potassium 4.6 POC Chloride Chloride 105 Carbon Dioxide 22.3 Anion Gap 15 POC BUN BUN 18 Creatinine 0.93 POC Creatinine Estimated GFR 58 L POC Glucose Random Glucose 370 H Calcium 7.0 L* Calcium Adj for Albumin 8.7 Phosphorus Magnesium 2.2 Total Bilirubin 0.2 AST 394 H ALT 465 H Alkaline Phosphatase 85 Total Creatine Kinase 94 Cancelled CK-MB (CK-2) CK-MB (CK-2) % Troponin I 0.07 H Cancelled B-Natriuretic Peptide Total Protein 4.3 L Albumin 1.9 L Lipase 228 Nasal Screen MRSA (PCR) Blood Type Blood Type Recheck Antibody Screen MTS Gel Crossmatch 04/30/18 04/30/18 05/01/18 21:00 22:30 01:36 WBC RBC Hgb POC Hgb (Calc) Hct POC Hct MCV MCH MCHC RDW Plt Count MPV Prelim Diff (Auto) Neut % (Auto) Lymph % (Auto) Mckean % (Auto) Eos % (Auto) Baso % (Auto) Neut # (Auto) Lymph # (Auto) Mckean # (Auto) Eos # (Auto) Baso # (Auto) WBC Differential Seg Neuts % (Manual) Band Neuts % (Manual) Lymphocytes % (Manual) Monocytes % (Manual) Eosinophils % (Manual) Metamyelocytes % (Man) Myelocytes % (Man) Promyelocytes % (Man) Abs Neuts (Manual) Differential Comment Platelet Estimate Platelet Morphology Stacie Cells Acanthocytes (Spur) Keratocytes PT INR APTT Puncture Site Right femoral Patient Temperature 98.6 O2 Saturation 98 ABG pH 7.01 L* ABG pCO2 61 H* ABG pO2 444 H ABG HCO3 15 L* ABG O2 Content 9.3 L ABG Base Excess -14.4 L ABG Methemoglobin 0.7 Zbigniew Test Hemoglobin 5.9 L* Carboxyhemoglobin 1.2 O2 Delivery Device Ventilator Liter Flow Vent Setting Inspired O2 100 Critical Value Yes POC Sodium Sodium POC Potassium Potassium POC Chloride Chloride Carbon Dioxide Anion Gap POC BUN BUN Creatinine POC Creatinine Estimated GFR POC Glucose Random Glucose Calcium Calcium Adj for Albumin Phosphorus Magnesium Total Bilirubin AST ALT Alkaline Phosphatase Total Creatine Kinase CK-MB (CK-2) CK-MB (CK-2) % Troponin I 2.75 H* D B-Natriuretic Peptide Total Protein Albumin Lipase Nasal Screen MRSA (PCR) Mrsa detected Blood Type Blood Type Recheck Antibody Screen MTS Gel Crossmatch 05/01/18 05/01/18 05/01/18 03:29 03:29 03:29 WBC 64.1 H D RBC 3.60 L Hgb 10.5 L D POC Hgb (Calc) Hct 35.1 POC Hct MCV 97.4 MCH 29.1 MCHC 29.9 L RDW 17.9 H Plt Count 308 D MPV 8.0 Prelim Diff (Auto) Slide review pending Neut % (Auto) 92.7 H Lymph % (Auto) 1.8 L Mckean % (Auto) 5.1 Eos % (Auto) 0.1 Baso % (Auto) 0.3 Neut # (Auto) 59.4 H Lymph # (Auto) 1.2 Mckean # (Auto) 3.3 H Eos # (Auto) 0.1 Baso # (Auto) 0.2 WBC Differential Manual diff final Seg Neuts % (Manual) 78 H Band Neuts % (Manual) 13 H Lymphocytes % (Manual) Monocytes % (Manual) 5 Eosinophils % (Manual) Metamyelocytes % (Man) 4 H Myelocytes % (Man) Promyelocytes % (Man) Abs Neuts (Manual) 60.9 H Differential Comment . Platelet Estimate Normal Platelet Morphology Normal Harman Cells 1+ H Acanthocytes (Spur) Keratocytes Occ H PT 15.8 H INR 1.6 APTT 36.4 H Puncture Site Patient Temperature O2 Saturation ABG pH ABG pCO2 ABG pO2 ABG HCO3 ABG O2 Content ABG Base Excess ABG Methemoglobin Zbigniew Test Hemoglobin Carboxyhemoglobin O2 Delivery Device Liter Flow Vent Setting Inspired O2 Critical Value POC Sodium Sodium 136 POC Potassium Potassium 5.4 H D POC Chloride Chloride 103 Carbon Dioxide 18.8 L Anion Gap 14 POC BUN BUN 23 H Creatinine 1.26 H POC Creatinine Estimated GFR 41 L POC Glucose Random Glucose 584 H* D Calcium 6.9 L* Calcium Adj for Albumin 8.3 L Phosphorus 5.5 H Magnesium 2.0 Total Bilirubin 1.1 H AST 1180 H ALT 959 H Alkaline Phosphatase 219 H Total Creatine Kinase 594 H CK-MB (CK-2) 32.2 H CK-MB (CK-2) % 5.4 H* Troponin I 2.90 H* D B-Natriuretic Peptide Total Protein 5.5 L D Albumin 2.3 L Lipase Nasal Screen MRSA (PCR) Blood Type Blood Type Recheck Antibody Screen MTS Gel Crossmatch Hospital Course: 82-year-old female presents from local nursing facility where she was found to be unresponsive by nursing staff. According to paramedics who provided a history patient has severe dementia is a recent 2-3-day resident of the nursing facility and was reportedly found by paramedics to be unresponsive pulseless without heart sounds and with apnea. ACLS protocol and resuscitative measures were initiated immediately with assisted ventilations and CPR as well as IV access administration of medications and intubation. According to paramedics in the field patient received 4 mg of epinephrine and 50 mEq of sodium bicarbonate. Patient also received 500 mL's of normal saline bolus. Patient was initially identified to be briefly and a bradycardic PEA then deteriorated to asystole and then was in a tachycardic PEA. Patient had return of spontaneous circulation upon arrival to the emergency department. At time of transfer from EMS stretcher to ED stretcher breath sounds were auscultated bilaterally and no borborygmi was identified prior to transfer to ED stretcher and upon transfer to ED structure patient continued to have bilateral breath sounds with no borborygmi. No difficulty with ambulation assisted ventilations. Patient did have faint pulse femoral he as well as palpable pulse with carotids and no blood pressure had been reported. Ongoing IV fluids were administered. Past medical history includes dementia and COPD per paramedics. The initial chest x-ray in the emergency department showed left pneumothorax for which the chest tube was placed by ED attending. The patient' s condition and poor prognosis was discussed with the family members by ED attending. It was found that [facility], however the paperwork was never finished. The patient's family expressed wishes to place a DNR order on the chart. SUBJ 05/01/18: Very critical on full life support. Maximized on pressors dopamine at 20 mcg/kg/min, Levophed at 15 mcg/min, epinephrine at 5 mcg/min. Pupils are dilated and fixed however patient has respiratory effort and securing the vent. Patient appears terminal. We will not escalate care at this point due to futility. Family may proceed with withdrawal of care and comfort measures After meeting with palliative care, active life support was withdrawn and patient's care was transitioned to comfort measures only. Patient at 1244 on 05/01/2018
[2018-05-01] MEDS ORDERED: traZODone 50 MG Tablet PO SCH (18:00)
== END 2018-05-01 12:44 | disposition expired ==
LOC: NEPC 19:53 → NEDA 21:42 → HIMC 22:25
PROVIDERS: ADMIT Internal Medicine Critical Care Medicine; ATTEND Internal Medicine Critical Care Medicine